=== PATIENT | male | born 1955 | race Caucasian/White ===

== ENCOUNTER → 2017-02-18 | Outpatient (CLI) | payer BC ==
[2017-02-18 07:22] LABS: Blood Urea Nitrogen 20 mg/dL (9-20); Non-African American GFR(MDRD) >60 (>60 ml/min/1.73 sqM)
--- NOTE | 2017-02-18 08:46 | CT ---
EXAMINATION TYPE: CT chest w con DATE OF EXAM: 02/18/2017 COMPARISON: Previous CT scan dated 06/14/2016 and a previous PET/CT dated 08/10/2016. HISTORY: SPN CT DLP: 745.70 mGycm Automated exposure control for dose reduction was used. CONTRAST: CT scan of the chest is performed with IV Contrast, patient injected with 100 ml mL of Omnipaque 300. FINDINGS: Solid lesion with central lucency in the right lower lobe remains in unchanged in size chel uring 1.7 cm. No additional parenchymal nodules are seen. There is no significant axillary or hilar adenopathy. There are some shotty mediastinal and aortopulm onary window lymphadenopathy. There is no pleural or pericardial fluid. The heart is not enlarged. There is a small hiatal hernia. Visualized portions of the upper abdomen are otherwise normal. There is a small splenule adjacent to the anterior tip of the spleen. There is mild hypertrophic spondylosis throughout the dorsal spine. No bony destructive lesion is see n. IMPRESSION: 1. SMALL HIATAL HERNIA. 2. SMALL HIATAL HERNIA. STABLE, SOLITARY PULMONARY NODULE. FOLLOW-UP EXAMINATION IN 6 MONTHS TIME WOU LD BE SUGGESTED. 3. MILD DEGENERATIVE CHANGE WITHIN THE SPINE.
== END | disposition home or self-care (01) ==
LOC: RADCTMAIN 06:47
PROVIDERS: ATTEND Internal Medicine
DX: R91.1 Solitary pulmonary nodule (principal)
CPT/HCPCS: 82565; 84520; 71260; 36415; Q9967

== ENCOUNTER → 2022-02-11 | Outpatient (CLI) | payer BC ==
[2022-02-11 14:32] LABS: ALT 12 U/L (10-49); AST 16 U/L (14-35); Chol/HDL Ratio 3.19 Ratio; LDL Cholesterol,Calculated 61.3 mg/dL (0.0-131.0)
== END | disposition home or self-care (01) ==
LOC: LABWHC1 09:54
PROVIDERS: ATTEND Internal Medicine
DX: E78.2 Mixed hyperlipidemia (principal)
CPT/HCPCS: 36415; 80061; 84450; 84460

== ENCOUNTER → 2022-03-22 | Outpatient (CLI) | payer MEDICARE ==
[2022-03-22 07:44] LABS: African American GFR (CKD) >90 (>60 ml/min/1.73 sqM); Blood Urea Nitrogen 21 mg/dL (9-20); Non-African American GFR(CKD) 88 (>60 ml/min/1.73 sqM)
--- NOTE | 2022-03-22 08:58 | XR ---
EXAMINATION TYPE: XR humerus RT DATE OF EXAM: 03/22/2022 COMPARISON: NONE HISTORY: 67-year-old male assess for contrast extravasation after CT injection. TECHNIQUE: 2 views FINDINGS: Only a small amount of extravasated contrast is present along the antecubital fossa region. There is degenerative change at the glenohumeral joint characterized by inferior humeral head spurring. There is a 1.9 x 0.6 cm calcific focus projecting just above the greater tuberosity. Mild to moderate degen erative change AC joint. No acute fracture. IMPRESSION: 1. Only a small amount of extravasated contrast along the antecubital fossa. The remaining contrast i s not within the [id number]. Further clinical correlation will be needed. 2. Correlate for any potential symptoms of calcific tendinitis of the rotator cuff. 3. Underlying at least mild OA at the glenohumeral joint.
--- NOTE | 2022-03-22 10:34 | CT ---
EXAMINATION TYPE: CT chest w con DATE OF EXAM: 03/22/2022 COMPARISON: 02/18/2017 HISTORY: 67-year-old male R91.8, Lung nodule right lung TECHNIQUE: Contiguous axial scanning of the chest after the administration of 140 mL of Isovue 300. Coronal/sagittal reconstructions performed. Patient received 2 separate injections of 70 mL IV contrast. This seems to be some delayed intravascu lar contrast. Both scans may have become delayed inadvertently. We see some opacification of the kidn eys. X-ray of the right arm shows no large area of extravasation. CT DLP: 1678mGycm. Automatic exposure control utilized for a dose reduction. FINDINGS: Mild pectus excavatum deformity. Heart upper limits of normal in size without pericardial effusion. LAD and circumflex coronary artery calcifications are present. Ectatic aortic root at 3.6 cm. Ectatic ascending aorta 3.7 cm. Minimal atherosclerotic arch calcifica tions. Convex-right vessel branching anatomy. 1.9 cm nodule posterior left thyroid lobe. Possible additional 2.0 cm nodule of the thyroid isthmus. Mildly enlarged caliber to the main right and left pulmonary arteries measuring up to 2.9 cm suggesti ng underlying pulmonary hypertension. A 1.7 cm right hilar lymph node seems to have measured up to 2.0 cm, previously. Otherwise, no thorac ic lymphadenopathy by CT size criteria. There is some asymmetric narrowing of the right mainstem bronchus and tachycardia and interstitial ch anges at the right base. Lesser degree of interstitial changes and strandy scarring or atelectasis at the left base. Mild emphysematous change. No consolidation or pleural effusion. A 1.5 cm nodule posterior right lower lobe is unchanged. Centrally located 1.4 cm right lower lobe nodule is also unchanged, axial image 39. 6 mm subpleural pulmonary nodule overlying the right hemidiaphragm, axial image 39, not clearly seen previously. Six-month follow-up recommended to reassess this. 4 mm lingular pulmonary nodule, axial image 31 is unchanged. Tiny hiatal hernia. Multiple junctional folds within the gallbladder. Anterior splenule. Mild bilater al perinephric edema could reflect chronic kidney disease or senescent change. Bones: Spondylotic change visualized lower cervical spine. IMPRESSION: 1. COPD with minimal emphysema. Asymmetric narrowing right main stem bronchus. Correlate with patient 's symptoms for potential bronchomalacia. Chronic appearing pleural parenchymal scarring and some int erstitial fibrosis at the lower lungs. 2. A couple of dominant right lower lobe pulmonary nodules measuring up to 1.5 cm appear unchanged. A 6 mm subpleural pulmonary nodule at the right base is not clearly seen previously. Six-month follow- up CT to reassess. 3. Mildly enlarged 1.7 cm right hilar lymph node appears smaller compared to 2.0 cm, previously. 4. Tiny hiatal hernia. Suggestion of underlying thyroid nodules. Nonemergent thyroid ultrasound evalu ation to further assess.
== END | disposition home or self-care (01) ==
LOC: RADCTMAIN 06:13
PROVIDERS: ATTEND Family Medicine
DX: R91.8 Other nonspecific abnormal finding of lung field (principal); J43.9 Emphysema, unspecified; K44.9 Diaphragmatic hernia without obstruction or gangrene; M19.041 Primary osteoarthritis, right hand
CPT/HCPCS: 82565; 84520; 73060; 71260; Q9967

== ENCOUNTER 2022-09-13 09:25 | Day surgery (SDC) | payer BC, MEDICARE ==
[2022-09-11 16:19] VITALS: BMI 35.6
[~2022-09-13 09:25] MED LIST: LACTATED RINGERS 1,000 ML IV SCH; LIDOCAINE 1% (10MG/ML) FOR IV START INTRADERMA PRN
[2022-09-13 10:20] LABS: Glucose,Whole Blood 102 mg/dL (70-110)
[2022-09-13 10:21] VITALS: TEMP 97.7
[2022-09-13] MEDS ORDERED: PROPOFOL 10 MG/ML 20 ML VIAL IV ONE (11:02)
[2022-09-13] MEDS ORDERED: LIDOCAINE 2% INJ 20 MG/ML (2 ML VIAL) ONE (11:02)
--- NOTE | 2022-09-13 11:24 | P.PCN ---
Date of Procedure: 09/13/22 Procedure(s) Performed: BRIEF HISTORY: Patient is a 67-year-old pleasant white male scheduled for an elective colonoscopy as a part of screening for colon cancer. He does does have family history of colon cancer diagnosed in his brother at age 70. PROCEDURE PERFORMED: Colonoscopy with snare polypectomy. PREOPERATIVE DIAGNOSIS: Screening for colon cancer/family history of colon cancer. IV sedation per Anesthesia. PROCEDURE: After informed consent was obtained, the patient, was brought into the endoscopy unit. IV sedation was administered by Anesthesia under continuous monitoring. Digital rectal examination was normal. Initially the Olympus CF-160 flexible video colonoscope was then inserted in the rectum, gradually advanced into the cecum without any difficulty. Careful examination was performed as the scope was gradually being withdrawn. Ileocecal valve and the appendiceal orifice were visualized and appeared normal. Prep was fair Mucosa of the cecum appeared normal. In the ascending colon there was a 1 cm polyp removed by snare polypectomy. Rest of the, ascending colon, transverse colon, descending colon, sigmoid colon, and rectum appeared normal. The rectum there was a polyp removed by snare polypectomy. Retroflexion was performed in the rectum and no lesions were seen. The patient tolerated the procedure well. IMPRESSION: 5 mm and 1 cm ascending colon polyp status post polypectomy 5 mm rectal polyp status post snare polypectomy RECOMMENDATIONS: Findings of this examination were discussed with the patient as well as his family..He was advised to follow with the biopsies as. If the biopsy reveals adenoma he can have a repeat colonoscopy in 3 years.
[2022-09-13 12:01] VITALS: BP 118/73; PULSE 67; RESP 20
== END 2022-09-13 12:08 | disposition home or self-care (01) ==
LOC: ORWHC2ENDO 09:25
PROVIDERS: ATTEND Internal Medicine Gastroenterology
DX: Z12.11 Encounter for screening for malignant neoplasm of colon (principal); D12.2 Benign neoplasm of ascending colon; K62.1 Rectal polyp; Z80.0 Family history of malignant neoplasm of digestive organs; I10 Essential (primary) hypertension; E78.5 Hyperlipidemia, unspecified; I48.91 Unspecified atrial fibrillation; G47.33 Obstructive sleep apnea (adult) (pediatric); Z99.89 Dependence on other enabling machines and devices; M19.90 Unspecified osteoarthritis, unspecified site; K21.9 Gastro-esophageal reflux disease without esophagitis; J44.9 Chronic obstructive pulmonary disease, unspecified; F17.200 Nicotine dependence, unspecified, uncomplicated; Z79.4 Long term (current) use of insulin; Z79.02 Long term (current) use of antithrombotics/antiplatelets; Z79.51 Long term (current) use of inhaled steroids; Z79.899 Other long term (current) drug therapy; Z90.49 Acquired absence of other specified parts of digestive tract; Z98.890 Other specified postprocedural states; Z79.811 Long term (current) use of aromatase inhibitors
CPT/HCPCS: 88305; 45385; J2704; J2001

== ENCOUNTER 2024-03-02 17:31 | Inpatient (IN) | payer MEDICARE ==
--- NOTE | 2024-03-02 18:13 | ED ---
General Adult HPI - General Source: patient, RN notes reviewed Mode of arrival: ambulatory Limitations: no limitations <Shelly Parker - Last Filed: 03/02/24 18:11> <Chava Russo - Last Filed: 03/02/24 21:57> - General Chief complaint: Shortness of Breath Stated complaint: SOB Time Seen by Provider: 03/02/24 18:11 - History of Present Illness Initial comments: Quick note: 68-year-old male presents to the emergency department for evaluation of shortness of breath. Patient states that this been going on for around a week. He does note that he was recently on steroids and completed the course today. He states that he thought he was getting better at that time but seems to be worsening again. He does have a history of COPD. (Shelly Parker) Dictation was produced using [employer] dictation software. please excuse any grammatical, word or spelling errors. Chief Complaint: 68-year-old male sent in by primary care doctor for concerns of CHF History of Present Illness: Patient 68-year-old male presents to the emergency department by primary care doctor for concerns of CHF. Patient has been short of breath. Has been dealing with respiratory infection completed course of antibiotics. He is also had swelling in his legs. He saw his primary care doctor today was sent to the ER for concerns of CHF. Patient has no chest pain. He wears oxygen at night as needed. Patient denies any fever, chills or night sweats. The ROS documented in this emergency department record has been reviewed and confirmed by me. Those systems with pertinent positive or negative responses have been documented in the HPI. All other systems are other negative and/or noncontributory. (Chava Russo) - Related Data Home Medications Medication Instructions Recorded Confirmed Cholecalciferol [Vitamin D3] 2,000 unit PO DAILY 10/19/15 09/13/22 Enalapril Maleate [Vasotec] 10 mg PO DAILY 10/19/15 09/13/22 Canagliflozin [Invokana] 300 mg PO DAILY 06/12/17 09/13/22 Cyanocobalamin (Vitamin B-12) 5,000 mg PO DAILY 06/12/17 09/13/22 [Vitamin B12] Potassium Chloride [K-Tab ER] 10 meq PO DAILY 06/12/17 09/13/22 metFORMIN HCL [Glucophage] 1,000 mg PO DAILY 06/12/17 09/13/22 Atorvastatin [Lipitor] 40 mg PO DAILY 09/11/22 09/13/22 Bisoprolol-Hctz 10-6.25 mg [Ziac 1 tab PO DAILY 09/11/22 09/13/22 10-6.25 MG] INSULIN LISPRO (For Pump) [humaLOG 0.01 units SQ-PUMP CONTINUOUS 09/11/22 09/13/22 (For Pump)] Rivaroxaban [Xarelto] 2.5 mg PO BID 09/11/22 09/13/22 Tiotropium 18 Mcg/Puff [Spiriva] 2 puff INHALATION DAILY 09/11/22 09/13/22 Allergies Allergy/AdvReac Type Severity Reaction Status Date / Time No Known Allergies Allergy Verified 03/02/24 17:47 Review of Systems ROS Other: All systems not noted in ROS Statement are negative. <Shelly Parker - Last Filed: 03/02/24 18:11> ROS Other: All systems not noted in ROS Statement are negative. <Chava Russo - Last Filed: 03/02/24 21:57> ROS Statement: Those systems with pertinent positive or pertinent negative responses have been documented in the HPI. Past Medical History Past Medical History: Atrial Fibrillation, COPD, Diabetes Mellitus, GERD/Reflux, Hyperlipidemia, Hypertension, Osteoarthritis (OA), Respiratory Disorder, Sleep Apnea/CPAP/BIPAP Additional Past Medical History / Comment(s): doesn't use cpap machine, thinks A fib History of Any Multi-Drug Resistant Organisms: None Reported Past Surgical History: Appendectomy, Heart Catheterization Additional Past Surgical History / Comment(s): 316 TOTAL LEFT HIP REPLACEMENT, l cataract Past Anesthesia/Blood Transfusion Reactions: No Reported Reaction Past Psychological History: No Psychological Hx Reported Smoking Status: Current every day smoker Past Alcohol Use History: None Reported Past Drug Use History: None Reported - Past Family History Brother(s) Family Medical History: Cancer Additional Family Medical History / Comment(s): lung, skin, and colon Mother Family Medical History: CVA/TIA Father Family Medical History: Congestive Heart Failure (CHF) <Shelly Parker - Last Filed: 03/02/24 18:11> General Exam Limitations: no limitations <Shelly Parker - Last Filed: 03/02/24 18:11> <Chava Russo - Last Filed: 03/02/24 21:57> - General Exam Comments Initial Comments: Visual Physical Exam Vital signs reviewed General: Well-appearing, nontoxic, no acute distress. Head: Normocephalic, atraumatic Eyes: PERRLA, EOMI ENT: Airway patent Chest: Nonlabored breathing Skin: No visual rash, normal skin tone Neuro: Alert and oriented 3 Musculoskeletal: No gross abnormalities (Shelly Parker) PHYSICAL EXAM: General Impression: Alert and oriented x3, not in acute distress HEENT: Normocephalic atraumatic, extra-ocular movements intact, pupils equal and reactive to light bilaterally, mucous membranes moist. Cardiovascular: Heart regular rate and rhythm Chest: Able to complete full sentences, no retractions, no tachypnea, lungs clear to auscultation bilaterally Abdomen: abdomen soft, non-tender, non-distended, no organomegaly Musculoskeletal: Pulses present and equal in all extremities, 2+ pitting edema to the lower extremities Motor: no focal deficits noted Neurological: CN II-XII grossly intact, no focal motor or sensory deficits noted Skin: Intact with no visualized rashes Psych: Normal affect and mood (Chava Russo) Course Vital Signs 03/02/24 03/02/24 03/02/24 17:44 21:27 21:32 Temperature 97.9 F Pulse Rate 91 90 Respiratory 18 18 Rate Blood Pressure 117/67 114/70 O2 Sat by Pulse 90 L 88 L 91 L Oximetry EKG Findings - EKG Comments: EKG Findings:: My EKG interpretation: Ventricular rate 87, sinus rhythm,. 184, QRS 83, QTc 382. No MT prolongation, no QTC prolongation, no ST or T-wave changes noted. . Overall, this EKG is unremarkable <Chava Russo - Last Filed: 03/02/24 21:57> Medical Decision Making <Shelly Parker - Last Filed: 03/02/24 18:11> - Lab Data Result diagrams: 03/02/24 17:48 03/02/24 17:48 <Bayudan,Chava D - Last Filed: 03/02/24 21:57> - Medical Decision Making Quick note preformed and electronically signed by REECE Jenkins-C (Shelly Parker) Was pt. sent in by a medical professional or institution ([facility], [facility], urgent care, hospital, or [facility]...) When possible be specific @ -No Did you speak to anyone other than the patient for history (EMS, parent, family, police, friend...)? What history was obtained from this source @ -No Did you review nursing and triage notes (agree or disagree)? Why? @ -I reviewed and agree with nursing and triage notes Were old charts reviewed (outside hosp., previous admission, EMS record, old EKG, old radiological studies, urgent care reports/EKG's, [facility] records)? Report findings @ -No old charts were reviewed Differential Diagnosis (chest pain, altered mental status, abdominal pain women, abdominal pain men, vaginal bleeding, musculoskeletal, weakness, fever, dyspnea, syncope, headache, dizziness, GI bleed, back pain, seizure, CVA, palpatations, mental health)? @ -Differential Dyspnea: Coronary syndrome, arrhythmia, tamponade, asthma, COPD, pulmonary embolism, pneumonia, pneumothorax, pulmonary effusion, anaphylaxis, diabetic ketoacidosis, flailed chest, pulmonary contusion, diaphragmatic rupture, anemia, neuromuscular, this is not meant to be an all-inclusive list. EKG interpreted by me (3pts min.). @ -See above X-rays interpreted by me (1pt min.). @ -Chest x-ray is nonacute CT interpreted by me (1pt min.). @ -None done U/S interpreted by me (1pt. min.). @ -None done What testing was considered but not performed or refused? (CT, X-rays, U/S, labs)? Why? @ -None What meds were considered but not given or refused? Why? @ -None Was smoking cessation discussed for >3mins.? @ -No Were there social determinants of health that impacted care today? How? (Homel essness, low income, unemployed, alcoholism, drug addiction, transportation, low edu. Level, literacy, decrease access to med. care, [facility], rehab)? @ -No Was there de-escalation of care discussed even if they declined (Discuss DNR or withdrawal of care, Hospice)? DNR status @ -No What co-morbidities impacted this encounter? (DM, HTN, Smoking, COPD, CAD, Cancer, CVA, ARF, Chemo, Hep., AIDS, mental health diagnosis, sleep apnea, morbid obesity)? @ -None Was patient admitted / discharged? Hospital course, mention meds given and route, prescriptions, significant lab abnormalities, going to OR and other pertinent info. @ -68-year-old male presents with dyspnea. V vital signs upon arrival shows pulse ox of 90. Rest of vital signs within acceptable limits.. Laboratory evaluation is unremarkable. BNP is normal. Chest x-ray is nonacute. Patient underwent ambulatory pulse ox and his oxygen dropped to 88%. Patient will be admitted consultation to pulmonology. Did you discuss the management of the patient with other professionals (professionals i.e. , PA, [facility], lab, RT, psych nurse, clinical social worker, behavior support specialist, teacher, building drafting officer, heel caser)? Give summary @ -No Was critical care preformed (if so, how long)? @ -Yes, 33 minutes Undiagnosed new problem with uncertain prognosis? @ -No Drug Therapy requiring intensive monitoring for toxicity (Heparin, Nitro, Insulin, Cardizem)? @ -No Were any procedures done? @ -No Diagnosis/symptom? Acute, or Chronic, or Acute on Chronic? Uncomplicated (without systemic symptoms) or Complicated (systemic symptoms)? @ -Hypoxia Side effects of treatment? @ -No Exacerbation, Progression, or Severe Exacerbation? @ -No Poses a threat to life or bodily function? How? (Chest pain, USA, SC, pneumonia, PE, COPD, DKA, ARF, appy, cholecystitis, CVA, Diverticulitis, Homicidal, Suicidal, threat to staff... and all critical care pts) @ -yes (Chava Russo) - Lab Data Lab Results 03/02/24 03/02/24 03/02/24 Range/Units 17:48 17:48 17:48 WBC 11.1 H (3.8-10.6) k/uL RBC 5.50 (4.30-5.90) m/uL Hgb 16.4 (13.0-17.5) gm/dL Hct 52.4 (39.0-53.0) % MCV 95.3 (80.0-100.0) fL MCH 29.8 (25.0-35.0) pg MCHC 31.2 (31.0-37.0) g/dL RDW 14.1 (11.5-15.5) % Plt Count 314 (150-450) k/uL MPV 7.0 Neutrophils % 81 % Lymphocytes % 12 % Monocytes % 5 % Eosinophils % 1 % Basophils % 1 % Neutrophils # 9.0 H (1.3-7.7) k/uL Lymphocytes # 1.3 (1.0-4.8) k/uL Monocytes # 0.5 (0-1.0) k/uL Eosinophils # 0.1 (0-0.7) k/uL Basophils # 0.1 (0-0.2) k/uL Manual Slide Review Performed PT 10.8 (10.0-12.5) sec INR 1.0 (<1.2) APTT 23.4 (22.0-30.0) sec Sodium 132 L (137-145) mmol/L Potassium 4.7 (3.5-5.1) mmol/L Chloride 101 (98-107) mmol/L Carbon Dioxide 24 (22-30) mmol/L Anion Gap 7 mmol/L BUN 26 H (9-20) mg/dL Creatinine 0.60 L (0.66-1.25) mg/dL Est GFR (CKD-EPI)AfAm >90 (>60 ml/min/1.73 sqM) Est GFR (CKD-EPI)NonAf >90 (>60 ml/min/1.73 sqM) Glucose 297 H (74-99) mg/dL Calcium 9.3 (8.4-10.2) mg/dL Total Bilirubin 0.4 (0.2-1.3) mg/dL AST 21 (17-59) U/L ALT 25 (4-49) U/L Alkaline Phosphatase 110 (38-126) U/L Troponin I (0.000-0.034) ng/mL NT-Pro-B Natriuret Pep 114 pg/mL Total Protein 6.1 L (6.3-8.2) g/dL Albumin 3.6 (3.5-5.0) g/dL 03/02/24 Range/Units 17:48 WBC (3.8-10.6) k/uL RBC (4.30-5.90) m/uL Hgb (13.0-17.5) gm/dL Hct (39.0-53.0) % MCV (80.0-100.0) fL MCH (25.0-35.0) pg MCHC (31.0-37.0) g/dL RDW (11.5-15.5) % Plt Count (150-450) k/uL MPV Neutrophils % % Lymphocytes % % Monocytes % % Eosinophils % % Basophils % % Neutrophils # (1.3-7.7) k/uL Lymphocytes # (1.0-4.8) k/uL Monocytes # (0-1.0) k/uL Eosinophils # (0-0.7) k/uL Basophils # (0-0.2) k/uL Manual Slide Review PT (10.0-12.5) sec INR (<1.2) APTT (22.0-30.0) sec Sodium (137-145) mmol/L Potassium (3.5-5.1) mmol/L Chloride (98-107) mmol/L Carbon Dioxide (22-30) mmol/L Anion Gap mmol/L BUN (9-20) mg/dL Creatinine (0.66-1.25) mg/dL Est GFR (CKD-EPI)AfAm (>60 ml/min/1.73 sqM) Est GFR (CKD-EPI)NonAf (>60 ml/min/1.73 sqM) Glucose (74-99) mg/dL Calcium (8.4-10.2) mg/dL Total Bilirubin (0.2-1.3) mg/dL AST (17-59) U/L ALT (4-49) U/L Alkaline Phosphatase (38-126) U/L Troponin I <0.012 (0.000-0.034) ng/mL NT-Pro-B Natriuret Pep pg/mL Total Protein (6.3-8.2) g/dL Albumin (3.5-5.0) g/dL Disposition <Shelly Parker - Last Filed: 03/02/24 18:11> Decision Time: 21:57 <Chava Russo - Last Filed: 03/02/24 21:57> Clinical Impression: Hypoxia Disposition: ADMITTED IP TO THIS HOSP Condition: Fair Referrals: Yoni Hahn DO [Primary Care Provider] - 1-2 days
[2024-03-02 18:29] LABS: Basophils # (A) 0.1 k/uL (0-0.2); Basophils % (A) 1 %; Eosinophils # (A) 0.1 k/uL (0-0.7); Eosinophils % (A) 1 %; HCT 52.4 % (39.0-53.0); HGB 16.4 gm/dL (13.0-17.5); Lymphocytes # (A) 1.3 k/uL (1.0-4.8); Lymphocytes % (A) 12 %; MCH 29.8 pg (25.0-35.0); MCHC 31.2 g/dL (31.0-37.0); MCV 95.3 fL (80.0-100.0); Monocytes # (A) 0.5 k/uL (0-1.0); Monocytes % (A) 5 %; Neutrophils % (A) 81 %; Platelet Count 314 k/uL (150-450); RDW 14.1 % (11.5-15.5); WBC 11.1 k/uL (3.8-10.6)
[2024-03-02 18:37] LABS: ALT 25 U/L (4-49); AST 21 U/L (17-59); African American GFR (CKD) >90 (>60 ml/min/1.73 sqM); Albumin 3.6 g/dL (3.5-5.0); Alkaline Phosphatase 110 U/L (38-126); Anion Gap 7 mmol/L; Blood Urea Nitrogen 26 mg/dL (9-20); Calcium 9.3 mg/dL (8.4-10.2); Carbon Dioxide 24 mmol/L (22-30); Chloride 101 mmol/L (98-107); Glucose 297 mg/dL (74-99); Non-African American GFR(CKD) >90 (>60 ml/min/1.73 sqM); Potassium 4.7 mmol/L (3.5-5.1); Sodium 132 mmol/L (137-145); Total Bilirubin 0.4 mg/dL (0.2-1.3); Total Protein 6.1 g/dL (6.3-8.2)
[2024-03-02 18:43] LABS: NT-Pro-B-Type Natriuretic Pept 114 pg/mL
--- NOTE | 2024-03-02 18:44 | XR ---
EXAMINATION TYPE: XR chest 2V DATE OF EXAM: 03/02/2024 6:38 PM CLINICAL INDICATION:Male, 68 years old with history of difficulty breathing; [facility] COMPARISON: None TECHNIQUE: XR chest 2V Frontal view of the chest. FINDINGS: Lungs/Pleura: There is no evidence of pleural effusion, focal consolidation, or pneumothorax. Pulmonary vascularity: Unremarkable. Heart/mediastinum: Cardiomediastinal silhouette is enlarged and stable. Musculoskeletal: No acute osseous pathology. IMPRESSION: No acute cardiopulmonary disease/process.
[2024-03-02 18:47] LABS: Partial Thromboplastin Time 23.4 sec (22.0-30.0); Prothrombin Time 10.8 sec (10.0-12.5)
[2024-03-02] MEDS ORDERED: NALOXONE 0.4 MG/ML 1 ML VIAL IV PRN (21:54)
[2024-03-02] MEDS: SODIUM CHLORIDE 0.9% 1,000 ML IV SCH (22:02)
[2024-03-03] MEDS ORDERED: IPRATROPIUM-ALBUTEROL 3 ML NEB INHALATION PRN (01:28)
[2024-03-03] MEDS: RIVAROXABAN 2.5 MG TABLET PO SCH (01:51)
--- NOTE | 2024-03-03 02:32 | P.CNPUL ---
History of Present Illness Consult date: 03/03/24 Requesting physician: Chava Russo Reason for consult: dyspnea Chief complaint: sent in from his PCP for increased lower extremity swelling and SOB History of present illness: Patient is a 68-year-old white male with past medical history significant for chronic tobacco dependence, pulmonary nodule, COPD, chronic hypoxemic respiratory failure normally maintained on 4 L of home O2, obstructive sleep apnea without home CPAP, obesity, atrial fibrillation anticoagulated on Xarelto, diabetes mellitus, hypertension, hyperlipidemia ,among other things. His primary care provider is a Dr. Hahn. Developed increased shortness of breath and URI like symptoms earlier in the week. Mostly, reporting a runny nose, sore throat, sinus congestion, and a minimally productive cough with occasional green sputum. No fevers, chest pain, or hemoptysis. He was treated with course of steroids and antibiotics on an outpatient basis. States his was sick with similar symptoms a couple weeks ago. He is also reports increased lower extremity swelling. He does take Lasix on outpatient basis, reportedly missed some doses earlier in the week. Patient states that he is scheduled for a outpatient stress test later this month. He has paroxysmal atrial fibrillation, and is chronically anticoagulated on Xarelto. Denies missing any doses of his anticoagulation. Patient was sent in by his PCP for evaluation yesterday evening. He has bilateral lower extremity pitting edema. Denies any chest pain, heart palpitations, lightheadedness, or syncopal events. Chest x-ray did not show any acute cardiopulmonary process. Cardiac silhouette appears stable. No significant vascular congestion or pulmonary edema. No pleural effusions or pneumothoraces. No focal consolidations or evidence of pneumonia. CBC: WBC count 11.1, hemoglobin 16.4, hematocrit 52.4, platelets 314. BMP: Sodium 132, potassium 4.7, chloride 101, serum bicarb 24, BUN 26, creatinine 0.6, glucose 297. LFTs not elevated. Troponin less than 0.012. NT proBNP 114. EKG showing normal sinus rhythm without any obvious acute ischemic changes. Left axis deviation. afebrile. Vital signs stable. Review of Systems REVIEW OF SYSTEMS: CONSTITUTIONAL: Denies any recent significant weight loss or weight gain. EYES: Denies change in vision. EARS, NOSE, MOUTH, THROAT: Denies headaches, denies sore throat. CARDIOVASCULAR: Denies chest pain, palpitations or syncopal episodes. Does report increased lower extremity swelling and noncompliance with Lasix. RESPIRATORY: see HPI GASTROINTESTINAL: Denies change in appetite, abdominal pain, nausea and vomiting, or diarrhea GENITOURINARY: Denies hematuria, denies infections. MUSKULOSKELETAL: Denies pain, denies swelling. INTEGUMENTARY: Denies rash, denies eczema. NEUROLOGICAL: Denies recent memory loss, no recent seizure activity. PSYCHIATRIC: Denies anxiety, denies depression. HEMATOLOGIC/LYMPHATIC: Denies anemia, denies enlarged lymph node Past Medical History Past Medical History: Atrial Fibrillation, COPD, Diabetes Mellitus, GERD/Reflux, Hyperlipidemia, Hypertension, Osteoarthritis (OA), Respiratory Disorder, Sleep Apnea/CPAP/BIPAP Additional Past Medical History / Comment(s): doesn't use cpap machine, thinks A fib History of Any Multi-Drug Resistant Organisms: None Reported Past Surgical History: Appendectomy, Heart Catheterization Additional Past Surgical History / Comment(s): 10-30-15 TOTAL LEFT HIP REPLACEMENT, l cataract Past Anesthesia/Blood Transfusion Reactions: No Reported Reaction Past Psychological History: No Psychological Hx Reported Smoking Status: Current every day smoker Past Alcohol Use History: None Reported Past Drug Use History: None Reported - Past Family History Brother(s) Family Medical History: Cancer Additional Family Medical History / Comment(s): lung, skin, and colon Mother Family Medical History: CVA/TIA Father Family Medical History: Congestive Heart Failure (CHF) Medications and Allergies Home Medications Medication Instructions Recorded Confirmed Type Cholecalciferol [Vitamin D3] 2,000 unit PO DAILY 10/19/15 09/13/22 History Enalapril Maleate [Vasotec] 10 mg PO DAILY 10/19/15 09/13/22 History Canagliflozin [Invokana] 300 mg PO DAILY 06/12/17 09/13/22 History Cyanocobalamin (Vitamin B-12) 5,000 mg PO DAILY 06/12/17 09/13/22 History [Vitamin B12] Potassium Chloride [K-Tab ER] 10 meq PO DAILY 06/12/17 09/13/22 History metFORMIN HCL [Glucophage] 1,000 mg PO DAILY 06/12/17 09/13/22 History Atorvastatin [Lipitor] 40 mg PO DAILY 09/11/22 09/13/22 History Bisoprolol-Hctz 10-6.25 mg [Ziac 1 tab PO DAILY 09/11/22 09/13/22 History 10-6.25 MG] INSULIN LISPRO (For Pump) [humaLOG 0.01 units SQ-PUMP CONTINUOUS 09/11/22 09/13/22 History (For Pump)] Rivaroxaban [Xarelto] 2.5 mg PO BID 09/11/22 09/13/22 History Tiotropium 18 Mcg/Puff [Spiriva] 2 puff INHALATION DAILY 09/11/22 09/13/22 H istory Allergies Allergy/AdvReac Type Severity Reaction Status Date / Time No Known Allergies Allergy Verified 03/02/24 17:47 Physical Exam Vitals: Vital Signs Temp Pulse Resp BP Pulse Ox 03/03/24 00:58 74 16 114/66 96 03/02/24 21:32 90 18 114/70 91 L 03/02/24 21:27 88 L 03/02/24 17:44 97.9 F 91 18 117/67 90 L Intake and Output 03/02/24 03/02/24 03/03/24 14:59 22:59 06:59 Other: Weight 127.006 kg GENERAL EXAM: Alert, 68-year-old white male, sitting at the edge of the bed, comfortable in no apparent distress. HEAD: Normocephalic and atraumatic EYES: Normal reaction of pupils, equal size. NOSE: Clear with pink turbinates. THROAT: No erythema or exudates. NECK: No masses, no JVD. CHEST: No chest wall deformity. LUNGS: Equal air entry with very minimal end expiratory wheezing. No crackles, rhonchi, focal dullness. On 4 L/m nasal cannula. No conversational dyspnea or accessory muscle use.. CVS: S1 and S2 normal with no audible murmur, regular rhythm. No extra heart sounds ABDOMEN: No hepatosplenomegaly, active bowel sounds, no guarding or rigidity. SPINE: No scoliosis or deformity SKIN: No rashes CENTRAL NERVOUS SYSTEM: No focal deficits, tone is normal in all 4 extremities. EXTREMITIES: There is 3+ bilateral lower extremity pitting edema. No clubbing, or cyanosis. Peripheral pulses are intact. Results - Laboratory Findings CBC and BMP: 03/02/24 17:48 03/02/24 17:48 PT/INR, D-dimer PT 10.8 sec (10.0-12.5) 03/02/24 17:48 INR 1.0 (<1.2) 03/02/24 17:48 Abnormal lab findings: Abnormal Labs 03/02/24 03/02/24 17:48 17:48 WBC 11.1 H Neutrophils # 9.0 H Sodium 132 L BUN 26 H Creatinine 0.60 L Glucose 297 H Total Protein 6.1 L - Diagnostic Findings Chest x-ray: image reviewed Assessment and Plan Assessment: Suspect acute COPD exacerbation Bilateral lower extremity edema Acute on chronic dyspnea Chronic hypoxemic respiratory failure, normally maintained on 4 L/m nasal cannula 17/03 History of right lower lobe pulmonary nodule, reportedly follows up outpatient with the [facility] medical team. History of chronic tobacco dependence Obstructive sleep apnea, noncompliant with home CPAP History of paroxysmal atrial fibrillation, chronically anticoagulated on his Xarelto History of hyperlipidemia History of hypertension History of diabetes mellitus Obesity, with a BMI of 35 kg/m Plan: Patient's medications, labs, imaging reviewed Continue supplemental oxygen to maintain an oxygen saturation of 90% or greater Start patient on combination of DuoNeb's, Symbicort inhaler, and IV Solu-Medrol Check Cepheid 4-plex Patient has increased lower extremity swelling, and has reportedly been noncompliant with his Lasix on an outpatient basis Would start patient on Lasix 20 mg twice a day Check 2-D echocardiogram Reportedly has stress test scheduled for later this month with [facility] Consult cardiology We will also continue to follow I have personally seen and examined the patient, performed the documentation and the assessment and plan as written. Number of minutes spent on the visit:20 Time with Patient: Greater than 30
[2024-03-03] MEDS ORDERED: DEXTROSE 50% SYRINGE 50 ML IVP PRN ×2 (02:34)
[2024-03-03] MEDS: methylPREDNISolone SOD SUCCI 125 MG/2 ML VIAL IV SCH (05:03)
[2024-03-03 06:47] LABS: Glucose,Whole Blood 139 mg/dL (70-110)
[2024-03-03] MEDS: INSULIN ASPART (NovoLOG) 100 UNIT/ML VIAL SQ SCH (06:49)
[2024-03-03] MEDS: FAMOTIDINE 20 MG TAB PO SCH (08:31)
[2024-03-03] MEDS: FUROSEMIDE 10 MG/ML 2 ML VIAL IV SCH ×2 (08:32→21:39)
[2024-03-03] MEDS: IPRATROPIUM-ALBUTEROL 3 ML NEB INHALATION SCH (08:35)
[2024-03-03] MEDS: SYMBICORT 160-4.5 MCG INHALER INHALATION SCH (08:35)
--- NOTE | 2024-03-03 11:30 | P.CRDCN ---
History of Present Illness Consult date: 03/03/24 Consult reason: shortness of breath Chief complaint: sob History of present illness: History of present illness: Patient is a pleasant 68-year-old male with significant past medical history of COPD, tobacco abuse, lung nodule, atrial fibrillation, diabetes, hypertension, and hyperlipidemia who presented with worsening shortness of breath and edema. He does follow with Dr. Miranda in the office. He does have an outpatient stress test scheduled within the next 2 weeks. He reports that his shortness of breath and lower extremity edema has gotten worse over the past few days. He is confused on some of his medications and believes he is not taking any diuretics. Labs reviewed: WBC 11.1, hemoglobin 16.4, sodium 132, potassium 4.7, creatinine 0.6, troponin negative x 1, BNP 114. Chest x-ray with no acute findings. EKG shows sinus rhythm 87 bpm. He denies any chest pain or pressure. No dizziness or syncope. REVIEW OF SYSTEMS: No fever or chills. No cough or expectoration. No diaphoresis. Patient denies headache, dizziness, blurred vision, double vision. Patient denies any stomach discomfort. No nausea, vomiting. No hematochezia. No hematemesis. Denies any black stools or blood in his stools. Denies dysuria or hematuria. No muscle weakness or numbness. No chest pain or pressure. PHYSICAL EXAMINATION: This is a 68-year-old male in no apparent distress at the time of my examination. HEENT: Head is atraumatic, normocephalic. Pupils are equal, round. Sclerae anicteric. Conjunctivae are clear. Mucous membranes of the mouth are moist. Neck is supple. There is no jugular venous distention. No carotid bruit is heard. CHEST EXAMINATION: Lungs are clear to auscultation. No chest wall tenderness is noted on palpation or with deep breathing. HEART EXAMINATION: Heart regular rate and rhythm. S1, S2 heard. No murmurs, gallops or rub. ABDOMEN: Soft, nontender. Bowel sounds are heard. No organomegaly noted. EXTREMITIES: 2+ peripheral pulses with 1+ peripheral edema and no calf tenderness noted. NEUROLOGIC EXAMINATION: Patient is awake, alert and oriented x3. IMPRESSION AND PLAN: COPD Atrial fibrillation Diabetes Hypertension Hyperlipidemia Dyspnea Lower extremity edema PLAN: We will continue with current diuresis. Will check echo to evaluate heart function and structure. D-dimer pending. Will clarify his Xarelto dose. We will follow. I am dictating on behalf of Dr. Sage Miranda's history/physical and assessment/plan. Past Medical History Past Medical History: Atrial Fibrillation, COPD, Diabetes Mellitus, GERD/Reflux, Hyperlipidemia, Hypertension, Osteoarthritis (OA), Respiratory Disorder, Sleep Apnea/CPAP/BIPAP Additional Past Medical History / Comment(s): doesn't use cpap machine, thinks A fib History of Any Multi-Drug Resistant Organisms: None Reported Past Surgical History: Appendectomy, Heart Catheterization Additional Past Surgical History / Comment(s): 10-30-15 TOTAL LEFT HIP REPLACEMENT, l cataract Past Anesthesia/Blood Transfusion Reactions: No Reported Reaction Past Psychological History: No Psychological Hx Reported Smoking Status: Current every day smoker Past Alcohol Use History: None Reported Past Drug Use History: None Reported - Past Family History Brother(s) Family Medical History: Cancer Additional Family Medical History / Comment(s): lung, skin, and colon Mother Family Medical History: CVA/TIA Father Family Medical History: Congestive Heart Failure (CHF) Medications and Allergies Home Medications Medication Instructions Recorded Confirmed Type Canagliflozin [Invokana] 300 mg PO DAILY 06/12/17 03/03/24 History Potassium Chloride [K-Tab ER] 10 meq PO DAILY 06/12/17 03/03/24 History metFORMIN HCL [Glucophage] 1,000 mg PO BID 06/12/17 03/03/24 History Atorvastatin [Lipitor] 40 mg PO DAILY 09/11/22 03/03/24 History Rivaroxaban [Xarelto] 2.5 mg PO BID 09/11/22 03/03/24 History Tiotropium 18 Mcg/Puff [Spiriva] 1 puff INHALATION RT-DAILY 09/11/22 03/03/24 History Albuterol Sulfate [Albuterol 1 - 2 puff PO RT-Q4H PRN 03/03/24 03/03/24 History Sulfate Hfa] Bisoprolol Fumarate [Zebeta] 10 mg PO DAILY 03/03/24 03/03/24 History Doxycycline [Vibramycin] 100 mg PO BID 03/03/24 03/03/24 History Dulaglutide [Trulicity] 3 mg SQ WE 03/03/24 03/03/24 History Enalapril [Vasotec] 5 mg PO DAILY 03/03/24 03/03/24 History Pioglitazone [Actos] 30 mg PO DAILY 03/03/24 03/03/24 History Allergies Allergy/AdvReac Type Severity Reaction Status Date / Time No Known Allergies Allergy Verified 03/03/24 08:21 Physical Exam Vitals: Vital Signs Temp Pulse Resp BP Pulse Ox 03/03/24 08:53 84 03/03/24 08:41 93 L 03/03/24 08:36 80 03/03/24 08:28 75 20 131/77 90 L 03/03/24 04:57 98.2 F 68 18 127/72 95 03/03/24 00:58 74 16 114/66 96 03/02/24 21:32 90 18 114/70 91 L 03/02/24 21:27 88 L 03/02/24 17:44 97.9 F 91 18 117/67 90 L Intake and Output 03/02/24 03/03/24 03/03/24 22:59 06:59 14:59 Other: Weight 127.006 kg Results 03/02/24 17:48 03/02/24 17:48 Cardiac Enzymes 03/02/24 03/02/24 Range/Units 17:48 17:48 AST 21 (17-59) U/L Troponin I <0.012 (0.000-0.034) ng/mL Coagulation 03/02/24 Range/Units 17:48 PT 10.8 (10.0-12.5) sec APTT 23.4 (22.0-30.0) sec CBC 03/02/24 Range/Units 17:48 WBC 11.1 H (3.8-10.6) k/uL RBC 5.50 (4.30-5.90) m/uL Hgb 16.4 (13.0-17.5) gm/dL Hct 52.4 (39.0-53.0) % Plt Count 314 (150-450) k/uL Comprehensive Metabolic Panel 03/02/24 Range/Units 17:48 Sodium 132 L (137-145) mmol/L Potassium 4.7 (3.5-5.1) mmol/L Chloride 101 (98-107) mmol/L Carbon Dioxide 24 (22-30) mmol/L BUN 26 H (9-20) mg/dL Creatinine 0.60 L (0.66-1.25) mg/dL Glucose 297 H (74-99) mg/dL Calcium 9.3 (8.4-10.2) mg/dL AST 21 (17-59) U/L ALT 25 (4-49) U/L Alkaline Phosphatase 110 (38-126) U/L Total Protein 6.1 L (6.3-8.2) g/dL Albumin 3.6 (3.5-5.0) g/dL Current Medications Generic Name Dose Route Start Last Admin Trade Name Freq PRN Reason Stop Dose Admin Albuterol/Ipratropium 3 ml 03/03/24 08:00 03/03/24 08:35 Ipratropium-Albuterol 3 Ml Neb INHALATION 3 ml RT-QID JAQUELIN Administration Albuterol/Ipratropium 3 ml 03/03/24 01:28 Ipratropium-Albuterol 3 Ml Neb INHALATION RT-Q4H PRN Shortness Of Breath Or Wheezing Budesonide/Formoterol Fumarate 2 puff 03/03/24 08:00 03/03/24 08:35 Symbicort 160-4.5 Mcg Inhaler INHALATION 2 puff RT-BID JAQUELIN Administration Dextrose/Water 25 ml 03/03/24 02:34 Dextrose 50% Syringe 50 Ml IVP PER PROTOCOL PRN Hypoglycemia Protocol Dextrose/Water 50 ml 03/03/24 02:34 Dextrose 50% Syringe 50 Ml IVP PER PROTOCOL PRN Hypoglycemia Protocol Famotidine 20 mg 03/03/24 09:00 03/03/24 08:31 Famotidine 20 Mg Tab PO 20 mg DAILY JAQUELIN Administration Furosemide 20 mg 03/03/24 09:00 03/03/24 08:32 Furosemide 10 Mg/Ml 2 Ml Vial IV 20 mg Q12HR JAQUELIN Administration Sodium Chloride 1,000 mls @ 20 mls/hr 03/02/24 22:00 03/02/24 22:02 Saline 0.9% IV 20 mls/hr .Q24H JAQUELIN Administration Insulin Aspart 0 unit 03/03/24 07:30 03/03/24 06:49 Insulin Aspart (Novolog) 100 Unit/Ml Vial SQ Not Given ACHS JAQUELIN Protocol Methylprednisolone Sodium Succinate 60 mg 03/03/24 06:00 03/03/24 05:03 Methylprednisolone Sod Succi 125 Mg/2 Ml Vial IV 60 mg Q6HR JAQUELIN Administration Naloxone HCl 0.2 mg 03/02/24 21:54 Naloxone 0.4 Mg/Ml 1 Ml Vial IV Q2M PRN Opioid Reversal Rivaroxaban 2.5 mg 03/03/24 01:45 03/03/24 08:31 Rivaroxaban 2.5 Mg Tablet PO 2.5 mg BID JAQUELIN Administration Protocol Intake and Output 03/02/24 03/03/24 03/03/24 22:59 06:59 14:59 Other: Weight 127.006 kg 03/02/24 17:48 03/02/24 17:48
[2024-03-03 12:02] LABS: Glucose,Whole Blood 351 mg/dL (70-110)
--- NOTE | 2024-03-03 13:05 | P.HPIM ---
History of Present Illness 68-year-old pulmonary came with complaints of shortness of breath patient does have history of COPD quit smoking about a week and a half ago. Patient also complaining of occasional drainage from production. Patient usually uses 3 to 4 L of oxygen at home does have advanced COPD. Patient significantly improved after breathing treatments and systemic steroids. Patient is not wheezing at this time. Patient does have history of paroxysmal atrial fibrillation chronically anticoagulated patient is presently sinus rhythm. Patient also has significant lower extremity pedal edema does not have any history of congestive heart failure patient BNP and is 132. Troponins are negative. Patient denies any chest pain REVIEW OF SYSTEMS: CONSTITUTIONAL: No fever, no malaise, no fatigue. HEENT: No recent visual problems or hearing problems. Denied any sore throat. CARDIOVASCULAR: No chest pain, orthopnea, PND, no palpitations, no syncope. PULMONARY:-Acute on chronic hypercapnic and hypoxic respiratory failure secondary to COPD exacerbation patient has significant improvement no hemoptysis. GASTROINTESTINAL: No diarrhea, no nausea, no vomiting, no abdominal pain. NEUROLOGICAL: No headaches, no weakness, no numbness. HEMATOLOGICAL: Denies any bleeding or petechiae. GENITOURINARY: Denies any burning micturition, frequency, or urgency. MUSCULOSKELETAL/RHEUMATOLOGICAL: Denies any joint pain, swelling, or any muscle pain. ENDOCRINE: Denies any polyuria or polydipsia. The rest of the 14-point review of systems is negative. PHYSICAL EXAMINATION: GENERAL: The patient is alert and oriented x3, not in any acute distress. Well developed, well nourished. HEENT: Pupils are round and equally reacting to light. EOMI. No scleral icterus. No conjunctival pallor. Normocephalic, atraumatic. No pharyngeal erythema. No thyromegaly. CARDIOVASCULAR: S1 and S2 present. No murmurs, rubs, or gallops. PULMONARY: Chest is clear to auscultation, no wheezing or crackles. ABDOMEN: Soft, nontender, nondistended, normoactive bowel sounds. No palpable organomegaly. MUSCULOSKELETAL: No joint swelling or deformity. EXTREMITIES: No cyanosis, clubbing, or pedal edema. NEUROLOGICAL: Gross neurological examination did not reveal any focal deficits. SKIN: No rashes. Assessment and plan , Patient is significant improvement-acute on chronic hypoxic and hypercapnic respiratory failure systemic steroids and nasal treatments. Steroids will be transition to oral continue with breathing treatments. -bacterial bronchitis doxycycline -Peripheral edema: Patient will be started on IV Lasix increased to 40 mg with monitoring of kidney function electrolytes and input and output -Paroxysmal atrial fibrillation presently rate controlled continue with home medications -Type 2 diabetes mellitus uncontrolled elevated blood sugars blood sugars expected to get worse because of the systemic steroids patient will be on high- dose scale -Sleep apnea uses CPAP machine -Generalized deconditioning PT and OT evaluation -Gastroesophageal reflux disease DVT prophylaxis: Past Medical History Past Medical History: Atrial Fibrillation, COPD, Diabetes Mellitus, GERD/Reflux, Hyperlipidemia, Hypertension, Osteoarthritis (OA), Respiratory Disorder, Sleep Apnea/CPAP/BIPAP Additional Past Medical History / Comment(s): doesn't use cpap machine, thinks A fib History of Any Multi-Drug Resistant Organisms: None Reported Past Surgical History: Appendectomy, Heart Catheterization Additional Past Surgical History / Comment(s): 10-30-15 TOTAL LEFT HIP REPLACEMENT, l cataract Past Anesthesia/Blood Transfusion Reactions: No Reported Reaction Past Psychological History: No Psychological Hx Reported Smoking Status: Current every day smoker Past Alcohol Use History: None Reported Past Drug Use History: None Reported - Past Family History Brother(s) Family Medical History: Cancer Additional Family Medical History / Comment(s): lung, skin, and colon Mother Family Medical History: CVA/TIA Father Family Medical History: Congestive Heart Failure (CHF) Medications and Allergies Home Medications Medication Instructions Recorded Confirmed Type Canagliflozin [Invokana] 300 mg PO DAILY 06/12/17 03/03/24 History Potassium Chloride [K-Tab ER] 10 meq PO DAILY 06/12/17 03/03/24 History metFORMIN HCL [Glucophage] 1,000 mg PO BID 06/12/17 03/03/24 History Atorvastatin [Lipitor] 40 mg PO DAILY 09/11/22 03/03/24 History Rivaroxaban [Xarelto] 2.5 mg PO BID 09/11/22 03/03/24 History Tiotropium 18 Mcg/Puff [Spiriva] 1 puff INHALATION RT-DAILY 09/11/22 03/03/24 History Albuterol Sulfate [Albuterol 1 - 2 puff PO RT-Q4H PRN 03/03/24 03/03/24 History Sulfate Hfa] Bisoprolol Fumarate [Zebeta] 10 mg PO DAILY 03/03/24 03/03/24 History Doxycycline [Vibramycin] 100 mg PO BID 03/03/24 03/03/24 History Dulaglutide [Trulicity] 3 mg SQ WE 03/03/24 03/03/24 History Enalapril [Vasotec] 5 mg PO DAILY 03/03/24 03/03/24 History Pioglitazone [Actos] 30 mg PO DAILY 03/03/24 03/03/24 History Allergies Allergy/AdvReac Type Severity Reaction Status Date / Time No Known Allergies Allergy Verified 03/03/24 08:21 Physical Exam Vitals: Vital Signs Temp Pulse Resp BP Pulse Ox 03/03/24 11:58 92 03/03/24 11:44 93 03/03/24 08:53 84 03/03/24 08:41 93 L 03/03/24 08:36 80 03/03/24 08:28 75 20 131/77 90 L 03/03/24 04:57 98.2 F 68 18 127/72 95 03/03/24 00:58 74 16 114/66 96 03/02/24 21:32 90 18 114/70 91 L 03/02/24 21:27 88 L 03/02/24 17:44 97.9 F 91 18 117/67 90 L Intake and Output 03/02/24 03/03/24 03/03/24 22:59 06:59 14:59 Other: Weight 127.006 kg Results CBC & Chem 7: 03/02/24 17:48 03/02/24 17:48 Labs: Abnormal Lab Results - Last 24 Hours (Table) 03/02/24 03/02/24 03/03/24 Range/Units 17:48 17:48 06:45 WBC 11.1 H (3.8-10.6) k/uL Neutrophils # 9.0 H (1.3-7.7) k/uL Sodium 132 L (137-145) mmol/L BUN 26 H (9-20) mg/dL Creatinine 0.60 L (0.66-1.25) mg/dL Glucose 297 H (74-99) mg/dL POC Glucose (mg/dL) 139 H (70-110) mg/dL Total Protein 6.1 L (6.3-8.2) g/dL 03/03/24 Range/Units 12:01 WBC (3.8-10.6) k/uL Neutrophils # (1.3-7.7) k/uL Sodium (137-145) mmol/L BUN (9-20) mg/dL Creatinine (0.66-1.25) mg/dL Glucose (74-99) mg/dL POC Glucose (mg/dL) 351 H (70-110) mg/dL Total Protein (6.3-8.2) g/dL
[2024-03-03] MEDS: NON FORMULARY DRUG (Dulaglutide [Trulicity] 3 MG/0.5 ML Each) SQ SCH (13:20)
[2024-03-03 17:16] LABS: Glucose,Whole Blood 255 mg/dL (70-110)
[2024-03-03 20:54] LABS: Glucose,Whole Blood 292 mg/dL (70-110)
[2024-03-04 06:38] LABS: Glucose,Whole Blood 159 mg/dL (70-110)
[2024-03-04] MEDS: predniSONE 20 MG TAB PO SCH (08:50)
[2024-03-04] MEDS: PIOGLITAZONE 30 MG TAB PO SCH (08:50)
[2024-03-04] MEDS: lisinopriL 10 MG TAB PO SCH (08:50)
[2024-03-04] MEDS: ATORVASTATIN 40 MG TAB PO SCH (08:51)
[2024-03-04] MEDS: NON FORMULARY DRUG (Canagliflozin [Invokana] 300 MG Tablet) PO SCH (08:56)
--- NOTE | 2024-03-04 11:03 | P.PN ---
Subjective History of present illness: Patient is a pleasant 68-year-old male with significant past medical history of COPD, tobacco abuse, lung nodule, atrial fibrillation, diabetes, hypertension, and hyperlipidemia who presented with worsening shortness of breath and edema. He does follow with Dr. Miranda in the office. He does have an outpatient stress test scheduled within the next 2 weeks. He reports that his shortness of breath and lower extremity edema has gotten worse over the past few days. He is confused on some of his medications and believes he is not taking any diuretics. Labs reviewed: WBC 11.1, hemoglobin 16.4, sodium 132, potassium 4.7, creatinine 0.6, troponin negative x 1, BNP 114. Chest x-ray with no acute findings. EKG shows sinus rhythm 87 bpm. He denies any chest pain or pressure. No dizziness or syncope. 03/04 patient seen and examined. Patient states overall he feels somewhat better. He has been receiving IV Lasix with increased urine output. Denies any chest pain or pressure. D-dimer was normal. Echocardiogram pending. PHYSICAL EXAMINATION: This is a 68-year-old male in no apparent distress at the time of my examination. HEENT: Head is atraumatic, normocephalic. Pupils are equal, round. Sclerae anic teric. Conjunctivae are clear. Mucous membranes of the mouth are moist. Neck is supple. There is no jugular venous distention. No carotid bruit is heard. CHEST EXAMINATION: Lungs are clear to auscultation. No chest wall tenderness is noted on palpation or with deep breathing. HEART EXAMINATION: Heart regular rate and rhythm. S1, S2 heard. No murmurs, gallops or rub. ABDOMEN: Soft, nontender. Bowel sounds are heard. No organomegaly noted. EXTREMITIES: 2+ peripheral pulses with 1+ peripheral edema and no calf tenderness noted. NEUROLOGIC EXAMINATION: Patient is awake, alert and oriented x3. IMPRESSION AND PLAN: COPD Atrial fibrillation Diabetes Hypertension Hyperlipidemia Dyspnea Lower extremity edema PLAN: Continue current dose of diuretics. Signs and symptoms consistent with rosalio estive heart failure despite relatively normal BNP which can be falsely low in obese patients. Continue with IV diuretics. Await 2-D echo. At least one more day in the hospital and monitor response tomorrow. Objective - Vital Signs Vital signs: Vital Signs Temp 97.5 F L 03/04/24 07:00 Pulse 88 03/04/24 09:05 Resp 17 03/04/24 07:00 BP 150/75 03/04/24 07:00 Pulse Ox 94 L 03/04/24 08:56 FiO2 Intake & Output 03/03/24 03/04/24 03/04/24 18:59 06:59 18:59 Intake Total 118 118 Balance 118 118 Weight 127.006 kg Intake: Oral 118 118 Other: # Voids 3 - Labs CBC & Chem 7: 03/02/24 17:48 03/02/24 17:48 Labs: Abnormal Lab Results - Last 24 Hours (Table) 03/03/24 03/03/24 03/03/24 Range/Units 11:05 12:01 17:14 POC Glucose (mg/dL) 351 H 255 H (70-110) mg/dL Hemoglobin A1c 8.7 H (<=6.0) % 03/03/24 03/04/24 Range/Units 20:53 06:37 POC Glucose (mg/dL) 292 H 159 H (70-110) mg/dL Hemoglobin A1c (<=6.0) %
[2024-03-04 12:41] LABS: Glucose,Whole Blood 308 mg/dL (70-110)
--- NOTE | 2024-03-04 13:05 | P.PN ---
Subjective Progress Note Date: 03/04/24 Patient is a 68-year-old white male with past medical history significant for chronic tobacco dependence, pulmonary nodule, COPD, chronic hypoxemic respiratory failure normally maintained on 4 L of home O2, obstructive sleep apnea without home CPAP, obesity, atrial fibrillation anticoagulated on Xarelto, diabetes mellitus, hypertension, hyperlipidemia ,among other things. His primary care provider is a Dr. Hahn. Developed increased shortness of breath and URI like symptoms earlier in the week. Mostly, reporting a runny nose, sore throat, sinus congestion, and a minimally productive cough with occasional green sputum. No fevers, chest pain, or hemoptysis. He was treated with course of steroids and antibiotics on an outpatient basis. States his was sick with similar symptoms a couple weeks ago. He is also reports increased lower extremity swelling. He does take Lasix on outpatient basis, reportedly missed some doses earlier in the week. Patient states that he is scheduled for a outpatient stress test later this month. He has paroxysmal atrial fibrillation, and is chronically anticoagulated on Xarelto. Denies missing any doses of his anticoagulation. Patient was sent in by his PCP for evaluation yesterday evening. He has bilateral lower extremity pitting edema. Denies any chest pain, heart palpitations, lightheadedness, or syncopal events. Chest x-ray did not show any acute cardiopulmonary process. Cardiac silhouette appears stable. No significant vascular congestion or pulmonary edema. No pleural effusions or pneumothoraces. No focal consolidations or evidence of pneumonia. CBC: WBC count 11.1, hemoglobin 16.4, hematocrit 52.4, platelets 314. BMP: Sodium 132, potassium 4.7, chloride 101, serum bicarb 24, BUN 26, creatinine 0.6, glucose 297. LFTs not elevated. Troponin less than 0.012. NT proBNP 114. EKG showing normal sinus rhythm without any obvious acute ischemic changes. Left axis deviation. afebrile. Vital signs stable. The patient is seen today 03/04/2024 in follow-up on the regular medical floor. He is currently sitting up at the bedside. Awake and alert in no acute distress. Feeling a bit better today compared to yesterday. Maintaining good O2 saturations in the 90s on 4 L/min per nasal cannula. Glucose 159. He is continued on DuoNeb inhalations, Symbicort, prednisone taper. Anticoagulated with Xarelto. Remains on IV diuretics. No accurate intake and output measured. Objective - Vital Signs Vital signs: Vital Signs Temp 97.5 F L 03/04/24 07:00 Pulse 82 03/04/24 12:32 Resp 17 03/04/24 07:00 BP 150/75 03/04/24 07:00 Pulse Ox 94 L 03/04/24 08:56 FiO2 Intake & Output 03/03/24 03/04/24 03/04/24 18:59 06:59 18:59 Intake Total 118 118 Balance 118 118 Weight 127.006 kg Intake: Oral 118 118 Other: # Voids 3 - Exam GENERAL EXAM: Alert, pleasant 68-year-old male, sitting up in bed, in no apparent distress. On 4 L/m nasal cannula. HEAD: Normocephalic and atraumatic EYES: Normal reaction of pupils, equal size. NOSE: Clear with pink turbinates. THROAT: No erythema or exudates. NECK: No masses, no JVD. CHEST: No chest wall deformity. LUNGS: Equal air entry with very minimal end expiratory wheezing. No crackles, rhonchi, focal dullness. CVS: S1 and S2 normal with no audible murmur, regular rhythm. No extra heart sounds ABDOMEN: No hepatosplenomegaly, active bowel sounds, no guarding or rigidity. SPINE: No scoliosis or deformity SKIN: No rashes CENTRAL NERVOUS SYSTEM: No focal deficits, tone is normal in all 4 extremities. EXTREMITIES: There is 2+ bilateral lower extremity pitting edema. No clubbing, or cyanosis. Peripheral pulses are intact. - Labs CBC & Chem 7: 03/02/24 17:48 03/02/24 17:48 Labs: Abnormal Lab Results - Last 24 Hours (Table) 03/03/24 03/03/24 03/03/24 Range/Units 11:05 17:14 20:53 POC Glucose (mg/dL) 255 H 292 H (70-110) mg/dL Hemoglobin A1c 8.7 H (<=6.0) % 03/04/24 03/04/24 Range/Units 06:37 12:39 POC Glucose (mg/dL) 159 H 308 H (70-110) mg/dL Hemoglobin A1c (<=6.0) % Assessment and Plan Assessment: Acute on chronic hypoxemic respiratory failure secondary to an acute COPD exacerbation Bilateral lower extremity edema Acute on chronic dyspnea Chronic hypoxemic respiratory failure, normally maintained on 4 L/m nasal cannula 17/03 History of right lower lobe pulmonary nodule, reportedly follows up outpatient with the [facility] medical team. History of chronic tobacco dependence Obstructive sleep apnea, noncompliant with home CPAP History of paroxysmal atrial fibrillation, chronically anticoagulated on his Xarelto History of hyperlipidemia History of hypertension History of diabetes mellitus Obesity, with a BMI of 35 kg/m Plan: The patient was seen and evaluated Medications reviewed Echocardiogram is still pending Continue IV diuretics Continue bronchodilators and prednisone Titrate the FiO2 as tolerated Increase his activity as tolerated We will continue to follow I have personally seen and examined the patient, performed the documentation and the assessment and plan as written. Number of minutes spent on the visit: 10.
--- NOTE | 2024-03-04 15:09 | P.PN ---
Subjective March 04, 2024 Patient is awaiting echocardiogram cardiology evaluated the patient and they believe patient does have congestive heart failure patient is being continued on IV Lasix. Patient leg swelling significantly improved but still has significant swelling. March 03, 2024 68-year-old pulmonary came with complaints of shortness of breath patient does have history of COPD quit smoking about a week and a half ago. Patient also complaining of occasional drainage from production. Patient usually uses 3 to 4 L of oxygen at home does have advanced COPD. Patient significantly improved after breathing treatments and systemic steroids. Patient is not wheezing at this time. Patient does have history of paroxysmal atrial fibrillation chronically anticoagulated patient is presently sinus rhythm. Patient also has significant lower extremity pedal edema does not have any history of congestive heart failure patient BNP and is 132. Troponins are negative. Patient denies any chest pain REVIEW OF SYSTEMS: CONSTITUTIONAL: No fever, no malaise, no fatigue. HEENT: No recent visual problems or hearing problems. Denied any sore throat. CARDIOVASCULAR: No chest pain, orthopnea, PND, no palpitations, no syncope. PULMONARY:-Acute on chronic hypercapnic and hypoxic respiratory failure secondary to COPD exacerbation patient has significant improvement no hemoptysis. GASTROINTESTINAL: No diarrhea, no nausea, no vomiting, no abdominal pain. NEUROLOGICAL: No headaches, no weakness, no numbness. HEMATOLOGICAL: Denies any bleeding or petechiae. GENITOURINARY: Denies any burning micturition, frequency, or urgency. MUSCULOSKELETAL/RHEUMATOLOGICAL: Denies any joint pain, swelling, or any muscle pain. ENDOCRINE: Denies any polyuria or polydipsia. The rest of the 14-point review of systems is negative. PHYSICAL EXAMINATION: GENERAL: The patient is alert and oriented x3, not in any acute distress. Well developed, well nourished. HEENT: Pupils are round and equally reacting to light. EOMI. No scleral icterus. No conjunctival pallor. Normocephalic, atraumatic. No pharyngeal erythema. No thyromegaly. CARDIOVASCULAR: S1 and S2 present. No murmurs, rubs, or gallops. PULMONARY: Chest is clear to auscultation, no wheezing or crackles. ABDOMEN: Soft, nontender, nondistended, normoactive bowel sounds. No palpable organomegaly. MUSCULOSKELETAL: No joint swelling or deformity. EXTREMITIES: No cyanosis, clubbing, or pedal edema. NEUROLOGICAL: Gross neurological examination did not reveal any focal deficits. SKIN: No rashes. Assessment and plan , Patient is significant improvement-acute on chronic hypoxic and hypercapnic respiratory failure systemic steroids and nasal treatments. Patient is presently on oral steroids -bacterial bronchitis doxycycline -Peripheral edema:, Cardiology believes patient does have congestive heart failure awaiting echocardiogram patient is being continued on IV Lasix increased to 40 mg with monitoring of kidney function electrolytes and input and output -Paroxysmal atrial fibrillation presently rate controlled continue with home medications -Type 2 diabetes mellitus uncontrolled elevated blood sugars blood sugars expected to get worse because of the systemic steroids patient will be on high- dose scale -Sleep apnea uses CPAP machine -Generalized deconditioning PT and OT evaluation -Gastroesophageal reflux disease DVT prophylaxis: Objective - Vital Signs Vital signs: Vital Signs Temp 97.5 F L 03/04/24 14:34 Pulse 102 H 03/04/24 14:34 Resp 18 03/04/24 14:34 BP 107/63 03/04/24 14:34 Pulse Ox 92 L 03/04/24 14:34 FiO2 Intake & Output 03/03/24 03/04/24 03/04/24 18:59 06:59 18:59 Intake Total 118 118 Balance 118 118 Weight 127.006 kg Intake: Oral 118 118 Other: # Voids 3 3 - Labs CBC & Chem 7: 03/02/24 17:48 03/02/24 17:48 Labs: Abnormal Lab Results - Last 24 Hours (Table) 03/03/24 03/03/24 03/03/24 Range/Units 11:05 17:14 20:53 POC Glucose (mg/dL) 255 H 292 H (70-110) mg/dL Hemoglobin A1c 8.7 H (<=6.0) % 03/04/24 03/04/24 Range/Units 06:37 12:39 POC Glucose (mg/dL) 159 H 308 H (70-110) mg/dL Hemoglobin A1c (<=6.0) %
[2024-03-04 15:27] LABS: BUN/Creat Ratio 26.11 Ratio (12.00-20.00); Blood Urea Nitrogen 23.5 mg/dL (9.0-27.0); Calcium 9.1 mg/dL (8.7-10.3); Carbon Dioxide 25.9 mmol/L (21.6-31.8); Chloride 95 mmol/L (96-109); Glucose 411 mg/dL (70-110); Potassium 4.6 mmol/L (3.5-5.5); Sodium 134 mmol/L (135-145)
[2024-03-04 17:21] LABS: Glucose,Whole Blood 334 mg/dL (70-110)
[2024-03-04 21:22] LABS: Glucose,Whole Blood 210 mg/dL (70-110)
[2024-03-05 05:53] LABS: Glucose,Whole Blood 182 mg/dL (70-110)
[2024-03-05 08:59] LABS: BUN/Creat Ratio 37.67 Ratio (12.00-20.00); Blood Urea Nitrogen 33.9 mg/dL (9.0-27.0); Calcium 8.8 mg/dL (8.7-10.3); Carbon Dioxide 30.4 mmol/L (21.6-31.8); Chloride 95 mmol/L (96-109); Glucose 245 mg/dL (70-110); Potassium 4.1 mmol/L (3.5-5.5); Sodium 134 mmol/L (135-145)
--- NOTE | 2024-03-05 11:25 | P.PN ---
Subjective History of present illness: Patient is a pleasant 68-year-old male with significant past medical history of COPD, tobacco abuse, lung nodule, atrial fibrillation, diabetes, hypertension, and hyperlipidemia who presented with worsening shortness of breath and edema. He does follow with Dr. Miranda in the office. He does have an outpatient stress test scheduled within the next 2 weeks. He reports that his shortness of breath and lower extremity edema has gotten worse over the past few days. He is confused on some of his medications and believes he is not taking any diuretics. Labs reviewed: WBC 11.1, hemoglobin 16.4, sodium 132, potassium 4.7, creatinine 0.6, troponin negative x 1, BNP 114. Chest x-ray with no acute findings. EKG shows sinus rhythm 87 bpm. He denies any chest pain or pressure. No dizziness or syncope. 03/04 patient seen and examined. Patient states overall he feels somewhat better. He has been receiving IV Lasix with increased urine output. Denies any chest pain or pressure. D-dimer was normal. Echocardiogram pending. 03/05 Patient seen and examined. He is feeling somewhat better. Denies any chest pain or pressure. Still significant lower extremity edema. Echocardiogram is still pending. He has had good urine output and creatinine stable at 0.9. PHYSICAL EXAMINATION: This is a 68-year-old male in no apparent distress at the time of my examination. HEENT: Head is atraumatic, normocephalic. Pupils are equal, round. Sclerae anicteric. Conjunctivae are clear. Mucous membranes of the mouth are moist. Neck is supple. There is no jugular venous distention. No carotid bruit is heard. CHEST EXAMINATION: Lungs are clear to auscultation. No chest wall tenderness is noted on palpation or with deep breathing. HEART EXAMINATION: Heart regular rate and rhythm. S1, S2 heard. No murmurs, gallops or rub. ABDOMEN: Soft, nontender. Bowel sounds are heard. No organomegaly noted. EXTREMITIES: 2+ peripheral pulses with 1+ peripheral edema and no calf tenderness noted. NEUROLOGIC EXAMINATION: Patient is awake, alert and oriented x3. IMPRESSION AND PLAN: COPD Atrial fibrillation Diabetes Hypertension Hyperlipidemia Dyspnea Lower extremity edema PLAN: Continue the IV diuretics at least for 1 more day. Await 2-D echo. Possible discharge in next 24-48 hours. Objective - Vital Signs Vital signs: Vital Signs Temp 97.6 F 03/05/24 07:37 Pulse 92 03/05/24 09:10 Resp 16 03/05/24 07:37 BP 124/73 03/05/24 07:37 Pulse Ox 95 03/05/24 07:37 FiO2 Intake & Output 03/04/24 03/05/24 03/05/24 18:59 06:59 18:59 Intake Total 118 236 Balance 118 236 Intake: Oral 118 236 Other: Voiding Method Toilet Urinal # Voids 3 1 - Labs CBC & Chem 7: 03/02/24 17:48 03/05/24 03:41 Labs: Abnormal Lab Results - Last 24 Hours (Table) 03/04/24 03/04/24 03/04/24 Range/Units 11:49 12:39 17:19 Sodium 134 L (135-145) mmol/L Chloride 95 L (96-109) mmol/L Anion Gap 13.10 H (4.00-12.00) mmol/L BUN (9.0-27.0) mg/dL BUN/Creatinine Ratio 26.11 H (12.00-20.00) Ratio Glucose 411 H (70-110) mg/dL POC Glucose (mg/dL) 308 H 334 H (70-110) mg/dL 03/04/24 03/05/24 03/05/24 Range/Units 21:20 03:41 05:51 Sodium 134 L (135-145) mmol/L Chloride 95 L (96-109) mmol/L Anion Gap (4.00-12.00) mmol/L BUN 33.9 H (9.0-27.0) mg/dL BUN/Creatinine Ratio 37.67 H (12.00-20.00) Ratio Glucose 245 H (70-110) mg/dL POC Glucose (mg/dL) 210 H 182 H (70-110) mg/dL
[2024-03-05 12:02] LABS: Glucose,Whole Blood 258 mg/dL (70-110)
--- NOTE | 2024-03-05 12:22 | P.PN ---
Subjective Progress Note Date: 03/05/24 Patient is a 68-year-old white male with past medical history significant for chronic tobacco dependence, pulmonary nodule, COPD, chronic hypoxemic respiratory failure normally maintained on 4 L of home O2, obstructive sleep apnea without home CPAP, obesity, atrial fibrillation anticoagulated on Xarelto, diabetes mellitus, hypertension, hyperlipidemia ,among other things. His primary care provider is a Dr. Hahn. Developed increased shortness of breath and URI like symptoms earlier in the week. Mostly, reporting a runny nose, sore throat, sinus congestion, and a minimally productive cough with occasional green sputum. No fevers, chest pain, or hemoptysis. He was treated with course of steroids and antibiotics on an outpatient basis. States his was sick with similar symptoms a couple weeks ago. He is also reports increased lower extremity swelling. He does take Lasix on outpatient basis, reportedly missed some doses earlier in the week. Patient states that he is scheduled for a outpatient stress test later this month. He has paroxysmal atrial fibrillation, and is chronically anticoagulated on Xarelto. Denies missing any doses of his anticoagulation. Patient was sent in by his PCP for evaluation yesterday evening. He has bilateral lower extremity pitting edema. Denies any chest pain, heart palpitations, lightheadedness, or syncopal events. Chest x-ray did not show any acute cardiopulmonary process. Cardiac silhouette appears stable. No significant vascular congestion or pulmonary edema. No pleural effusions or pneumothoraces. No focal consolidations or evidence of pneumonia. CBC: WBC count 11.1, hemoglobin 16.4, hematocrit 52.4, platelets 314. BMP: Sodium 132, potassium 4.7, chloride 101, serum bicarb 24, BUN 26, creatinine 0.6, glucose 297. LFTs not elevated. Troponin less than 0.012. NT proBNP 114. EKG showing normal sinus rhythm without any obvious acute ischemic changes. Left axis deviation. afebrile. Vital signs stable. The patient is seen today 03/04/2024 in follow-up on the regular medical floor. He is currently sitting up at the bedside. Awake and alert in no acute distress. Feeling a bit better today compared to yesterday. Maintaining good O2 saturations in the 90s on 4 L/min per nasal cannula. Glucose 159. He is continued on DuoNeb inhalations, Symbicort, prednisone taper. Anticoagulated with Xarelto. Remains on IV diuretics. No accurate intake and output measured. The patient is seen today March 05, 2024 in follow-up on the regular medical floor. He is awake and alert in no acute distress. Sitting up at the bedside. Denies any worsening shortness of breath, cough or congestion. He is maintaining O2 saturation in the mid 90s on 4 L/min per nasal cannula. He is afebrile. Hemodynamically stable. Potassium 4.1. Bicarb 30. BUN 34. Creatinine 0.9. Glucose 245. He remains on IV diuretics. Continued on bronchodilators and prednisone taper. Anticoagulated with Xarelto. Objective - Vital Signs Vital signs: Vital Signs Temp 97.6 F 03/05/24 07:37 Pulse 88 03/05/24 12:15 Resp 16 03/05/24 07:37 BP 124/73 03/05/24 07:37 Pulse Ox 95 03/05/24 07:37 FiO2 Intake & Output 03/04/24 03/05/24 03/05/24 18:59 06:59 18:59 Intake Total 118 236 Balance 118 236 Intake: Oral 118 236 Other: Voiding Method Toilet Urinal # Voids 3 1 - Exam GENERAL EXAM: Alert, oriented 68-year-old male, in no apparent distress. On 4 L/m nasal cannula. HEAD: Normocephalic and atraumatic EYES: Normal reaction of pupils, equal size. NOSE: Clear with pink turbinates. THROAT: No erythema or exudates. NECK: No masses, no JVD. CHEST: No chest wall deformity. LUNGS: Equal air entry with very minimal end expiratory wheezing. Faint crackles at the posterior bases. CVS: S1 and S2 normal with no audible murmur, regular rhythm. No extra heart sounds ABDOMEN: No hepatosplenomegaly, active bowel sounds, no guarding or rigidity. SPINE: No scoliosis or deformity SKIN: No rashes CENTRAL NERVOUS SYSTEM: No focal deficits, tone is normal in all 4 extremities. EXTREMITIES: There is 1+ bilateral lower extremity pitting edema. No clubbing, or cyanosis. Peripheral pulses are intact. - Labs CBC & Chem 7: 03/02/24 17:48 03/05/24 03:41 Labs: Abnormal Lab Results - Last 24 Hours (Table) 03/04/24 03/04/24 03/04/24 Range/Units 11:49 12:39 17:19 Sodium 134 L (135-145) mmol/L Chloride 95 L (96-109) mmol/L Anion Gap 13.10 H (4.00-12.00) mmol/L BUN (9.0-27.0) mg/dL BUN/Creatinine Ratio 26.11 H (12.00-20.00) Ratio Glucose 411 H (70-110) mg/dL POC Glucose (mg/dL) 308 H 334 H (70-110) mg/dL 03/04/24 03/05/24 03/05/24 Range/Units 21:20 03:41 05:51 Sodium 134 L (135-145) mmol/L Chloride 95 L (96-109) mmol/L Anion Gap (4.00-12.00) mmol/L BUN 33.9 H (9.0-27.0) mg/dL BUN/Creatinine Ratio 37.67 H (12.00-20.00) Ratio Glucose 245 H (70-110) mg/dL POC Glucose (mg/dL) 210 H 182 H (70-110) mg/dL 03/05/24 Range/Units 12:00 Sodium (135-145) mmol/L Chloride (96-109) mmol/L Anion Gap (4.00-12.00) mmol/L BUN (9.0-27.0) mg/dL BUN/Creatinine Ratio (12.00-20.00) Ratio Glucose (70-110) mg/dL POC Glucose (mg/dL) 258 H (70-110) mg/dL Assessment and Plan Assessment: Acute on chronic hypoxemic respiratory failure secondary to an acute COPD exacerbation Bilateral lower extremity edema Acute on chronic dyspnea Chronic hypoxemic respiratory failure, normally maintained on 4 L/m nasal cannula 17/03 History of right lower lobe pulmonary nodule, reportedly follows up outpatient with the [facility] medical team. History of chronic tobacco dependence Obstructive sleep apnea, noncompliant with home CPAP History of paroxysmal atrial fibrillation, chronically anticoagulated on his Xarelto History of hyperlipidemia History of hypertension History of diabetes mellitus Obesity, with a BMI of 35 kg/m Plan: The patient was seen and evaluated Medications and labs reviewed Echocardiogram is still pending Continue IV diuretics Continue bronchodilators and prednisone We will continue to follow I have personally seen and examined the patient, performed the documentation and the assessment and plan as written. Number of minutes spent on the visit: 10.
[2024-03-05 17:08] LABS: Glucose,Whole Blood 391 mg/dL (70-110)
[2024-03-05 20:19] LABS: Glucose,Whole Blood 338 mg/dL (70-110)
--- NOTE | 2024-03-05 22:35 | P.PN ---
Subjective Progress Note Date: 03/05/24 March 03, 2024 68-year-old pulmonary came with complaints of shortness of breath patient does have history of COPD quit smoking about a week and a half ago. Patient also complaining of occasional drainage from production. Patient usually uses 3 to 4 L of oxygen at home does have advanced COPD. Patient significantly improved after breathing treatments and systemic steroids. Patient is not wheezing at t his time. Patient does have history of paroxysmal atrial fibrillation chronically anticoagulated patient is presently sinus rhythm. Patient also has significant lower extremity pedal edema does not have any history of congestive heart failure patient BNP and is 132. Troponins are negative. Patient denies any chest pain March 04, 2024 Patient is awaiting echocardiogram cardiology evaluated the patient and they believe patient does have congestive heart failure patient is being continued on IV Lasix. Patient leg swelling significantly improved but still has significant swelling. 03/05/2024 Patient evaluated today sitting up in the chair. Remains on IV lasix 40 mg Q12 hour. Patient continues with lower extremity peripheral edema +2. Sodium 134, BUN 33.9, creatinine 0.9. Blood glucose 200-300s. REVIEW OF SYSTEMS: CONSTITUTIONAL: No fever, no malaise, no fatigue. HEENT: No recent visual problems or hearing problems. Denied any sore throat. CARDIOVASCULAR: No chest pain, orthopnea, PND, no palpitations, no syncope. PULMONARY:-Acute on chronic hypercapnic and hypoxic respiratory failure secondary to COPD exacerbation patient has significant improvement no hemoptysis. GASTROINTESTINAL: No diarrhea, no nausea, no vomiting, no abdominal pain. NEUROLOGICAL: No headaches, no weakness, no numbness. PHYSICAL EXAMINATION: GENERAL: The patient is alert and oriented x3, not in any acute distress. Well developed, well nourished. HEENT: Pupils are round and equally reacting to light. EOMI. No scleral icterus. No conjunctival pallor. Normocephalic, atraumatic. No pharyngeal erythema. No thyromegaly. CARDIOVASCULAR: S1 and S2 present. No murmurs, rubs, or gallops. PULMONARY: Chest is clear to auscultation, no wheezing or crackles. ABDOMEN: Soft, nontender, nondistended, normoactive bowel sounds. No palpable organomegaly. MUSCULOSKELETAL: No joint swelling or deformity. EXTREMITIES: No cyanosis, clubbing, or pedal edema. NEUROLOGICAL: Gross neurological examination did not reveal any focal deficits. SKIN: No rashes. Assessment and plan -acute on chronic hypoxic and hypercapnic respiratory failure felt to be CHF mostly patient continues on IV lasix. -bacterial bronchitis doxycycline -Peripheral edema expected to improve with IV lasix. -Paroxysmal atrial fibrillation presently rate controlled continue with home medications -Type 2 diabetes mellitus uncontrolled elevated blood sugars blood sugars expected to get worse because of the systemic steroids patient will be on high- dose scale add levemir at HS. -Sleep apnea uses CPAP machine -Generalized deconditioning PT and OT evaluation -Gastroesophageal reflux disease DVT prophylaxis: Xarelto GI prophylaxis Pepcid Full Code The impression and plan of care has been dictated by Keyona Ivey, Nurse Practitioner as directed. Dr. Aden MD I have performed a history and physical examination and medical decision making of this patient, discussed the same with the dictator, and agree with the di ctators assessment and plan as written, documented as a scribe. Based on total visit time, I have performed more than 50% of this visit. Objective - Vital Signs Vital signs: Vital Signs Temp 97.9 F 03/05/24 14:00 Pulse 107 H 03/05/24 14:00 Resp 16 03/05/24 14:00 BP 91/53 03/05/24 14:00 Pulse Ox 93 L 03/05/24 14:00 FiO2 Intake & Output 03/04/24 03/05/24 03/05/24 18:59 06:59 18:59 Intake Total 118 458 Balance 118 458 Intake: Oral 118 458 Other: Voiding Method Toilet Toilet Urinal Urinal # Voids 3 1 - Labs CBC & Chem 7: 03/02/24 17:48 03/05/24 03:41 Labs: Abnormal Lab Results - Last 24 Hours (Table) 03/04/24 03/04/24 03/04/24 Range/Units 11:49 17:19 21:20 Sodium 134 L (135-145) mmol/L Chloride 95 L (96-109) mmol/L Anion Gap 13.10 H (4.00-12.00) mmol/L BUN (9.0-27.0) mg/dL BUN/Creatinine Ratio 26.11 H (12.00-20.00) Ratio Glucose 411 H (70-110) mg/dL POC Glucose (mg/dL) 334 H 210 H (70-110) mg/dL 03/05/24 03/05/24 03/05/24 Range/Units 03:41 05:51 12:00 Sodium 134 L (135-145) mmol/L Chloride 95 L (96-109) mmol/L Anion Gap (4.00-12.00) mmol/L BUN 33.9 H (9.0-27.0) mg/dL BUN/Creatinine Ratio 37.67 H (12.00-20.00) Ratio Glucose 245 H (70-110) mg/dL POC Glucose (mg/dL) 182 H 258 H (70-110) mg/dL Assessment and Plan Time with Patient: Less than 30
[2024-03-05] MEDS: INSULIN DETEMIR (LEVEMIR) 100 UNIT/ML SYR SQ SCH (23:23)
[2024-03-06 05:58] LABS: Glucose,Whole Blood 132 mg/dL (70-110)
[2024-03-06 07:29] VITALS: BP 108/68; RESP 16; TEMP 97.6
--- NOTE | 2024-03-06 08:56 | CA ---
Transthoracic Echo Report Name: Lauri Jones Age: 68 Gender: M : 1955 Exam Date: 03/06/2024 07:18 Exam Location: [facility] Ht (in): 76 Wt (lb): 280 Ordering Physician: Johnathan Bearden Attending/Referring Phys: Director [employer] Iesha Estrada RDCS Procedure CPT: Indications: evaluate LV function Cardiac Hx: Technical Quality: Poor Contrast 1: Definity Total Dose (mL): 2 Contrast 2: Total Dose (mL): MEASUREMENTS (Male / Female) Normal Values 2D ECHO LV Diastolic Diameter PLAX 5.1 cm 4.2 - 5.9 / 3.9 - 5.3 cm LV Systolic Diameter PLAX 4.4 cm IVS Diastolic Thickness 1.1 cm 0.6 - 1.0 / 0.6 - 0.9 cm LVPW Diastolic Thickness 1.0 cm 0.6 - 1.0 / 0.6 - 0.9 cm LV Relative Wall Thickness 0.4 RV Internal Dim ED PLAX 2.0 cm LA Systolic Diameter LX 4.0 cm 3.0 - 4.0 / 2.7 - 3.8 cm LA Volume 73.2 cm??? 18 - 58 / 22 - 52 cm??? LA Volume Index 27.7 cm???/m??? 16 - 28 cm???/m??? M-MODE Aortic Root Diameter MM 3.6 cm LA Systolic Diameter MM 3.9 cm LA Ao Ratio MM 1.1 AV Cusp Separation MM 2.5 cm DOPPLER AV Peak Velocity 127.5 cm/s AV Peak Gradient 6.5 mmHg MV Area PHT 3.3 cm??? Mitral E Point Velocity 63.8 cm/s Mitral A Point Velocity 99.4 cm/s Mitral E to A Ratio 0.6 MV Deceleration Time 230.0 ms TR Peak Velocity 284.5 cm/s TR Peak Gradient 32.4 mmHg Right Ventricular Systolic Press 40.4 mmHg FINDINGS Left Ventricle Left ventricular ejection fraction is estimated at 55-60 %. Mildly increased septal wall thickness. No obvious regional wall motion abnormalities. Left ventricular cavity size normal. Right Ventricle Mild right ventricular dilatation. Mild pulmonary hypertension. Right Atrium Mild right atrial dilatation. Left Atrium Moderately increased left atrial volume. Mildly increased left atrial area. Mitral Valve Structurally normal mitral valve. Trace mitral regurgitation. No mitral stenosis. Aortic Valve Aortic valve not well visualized. No aortic stenosis. No aortic regurgitation. Tricuspid Valve Structurally normal tricuspid valve. Mild tricuspid regurgitation. Pulmonic Valve Structurally normal pulmonic valve. No pulmonic regurgitation. No pulmonic stenosis. Pericardium No pericardial or pleural effusion. Aorta Aorta at upper limits of normal. CONCLUSIONS Left ventricular ejection fraction 55-60% Mildly increased left ventricular wall thickness RVSP 40 Moderately dilated left atrium Trace mitral regurgitation Mild tricuspid regurgitation No pericardial effusion Previewed by: Dr. Sage Miranda DO (Electronically Signed) Final Date: 06 March 2024 08:55
--- NOTE | 2024-03-06 09:29 | P.PN ---
Subjective Progress Note Date: 03/06/24 History of present illness: Patient is a pleasant 68-year-old male with significant past medical history of COPD, tobacco abuse, lung nodule, atrial fibrillation, diabetes, hypertension, and hyperlipidemia who presented with worsening shortness of breath and edema. He does follow with Dr. Miranda in the office. He does have an outpatient stress test scheduled within the next 2 weeks. He reports that his shortness of breath and lower extremity edema has gotten worse over the past few days. He is confused on some of his medications and believes he is not taking any diuretics. Labs reviewed: WBC 11.1, hemoglobin 16.4, sodium 132, potassium 4.7, creatinine 0.6, troponin negative x 1, BNP 114. Chest x-ray with no acute findings. EKG shows sinus rhythm 87 bpm. He denies any chest pain or pressure. No dizziness or syncope. 03/04 patient seen and examined. Patient states overall he feels somewhat better. He has been receiving IV Lasix with increased urine output. Denies any chest pain or pressure. D-dimer was normal. Echocardiogram pending. 03/05 Patient seen and examined. He is feeling somewhat better. Denies any chest pain or pressure. Still significant lower extremity edema. Echocardiogram is still pending. He has had good urine output and creatinine stable at 0.9. 03/06 Patient is seen and examined. He has been maintained on IV Lasix 40 mg every 12 hours. Blood pressure 108/68, heart rate 85, pulse ox 96%. Patient still has some shortness of breath and is on home O2, he states on and off. Edema is better today. Echocardiogram reveals EF of 55 to 60%, mildly increased left ventricular wall thickness. RVSP 40. Moderately dilated left atrium. Trace MR, mild TR. No pericardial effusion. PHYSICAL EXAMINATION: This is a 68-year-old male in no apparent distress at the time of my examination. HEENT: Head is atraumatic, normocephalic. Pupils are equal, round. Sclerae anicteric. Conjunctivae are clear. Mucous membranes of the mouth are moist. Neck is supple. There is no jugular venous distention. No carotid bruit is heard. CHEST EXAMINATION: Lungs are clear to auscultation. No chest wall tenderness is noted on palpation or with deep breathing. HEART EXAMINATION: Heart regular rate and rhythm. S1, S2 heard. No murmurs, gallops or rub. ABDOMEN: Soft, nontender. Bowel sounds are heard. No organomegaly noted. EXTREMITIES: 2+ peripheral pulses with 1+ peripheral edema and no calf tenderness noted. NEUROLOGIC EXAMINATION: Patient is awake, alert and oriented x3. IMPRESSION AND PLAN: COPD Paroxysmal atrial fibrillation Diabetes Hypertension Hyperlipidemia Dyspnea Lower extremity edema PLAN: Continue patient on home cardiac medications: Atorvastatin 40 mg daily, lisinopril 10 mg daily, Xarelto 2.5 mg twice daily Transition IV diuretics to oral Lasix 40 mg bid Patient is cleared for discharge from cardiology perspective. Patient will follow up with Dr. Miranda in 1 week. Nurse practitioner note has been reviewed, I agree with documented findings and plan of care. Patient was seen and examined. Objective - Vital Signs Vital signs: Vital Signs Temp 97.6 F 03/06/24 07:27 Pulse 85 03/06/24 07:27 Resp 16 03/06/24 07:27 BP 108/68 03/06/24 07:27 Pulse Ox 96 03/06/24 07:27 FiO2 Intake & Output 03/05/24 03/06/24 03/06/24 18:59 06:59 18:59 Intake Total 458 540 120 Balance 458 540 120 Weight 127.1 kg Intake: Oral 458 540 120 Other: Voiding Method Toilet Toilet Urinal Urinal # Voids 2 2 - Labs CBC & Chem 7: 03/02/24 17:48 03/05/24 03:41 Labs: Abnormal Lab Results - Last 24 Hours (Table) 03/05/24 03/05/24 03/05/24 Range/Units 12:00 17:07 20:18 POC Glucose (mg/dL) 258 H 391 H 338 H (70-110) mg/dL 03/06/24 Range/Units 05:56 POC Glucose (mg/dL) 132 H (70-110) mg/dL
[2024-03-06 09:41] LABS: BUN/Creat Ratio 41.67 Ratio (12.00-20.00); Blood Urea Nitrogen 37.5 mg/dL (9.0-27.0); Carbon Dioxide 31.6 mmol/L (21.6-31.8); Chloride 95 mmol/L (96-109); Glucose 149 mg/dL (70-110); Potassium 4.6 mmol/L (3.5-5.5); Sodium 135 mmol/L (135-145)
--- NOTE | 2024-03-06 10:43 | P.PN ---
Subjective Progress Note Date: 03/06/24 Patient is a 68-year-old white male with past medical history significant for chronic tobacco dependence, pulmonary nodule, COPD, chronic hypoxemic respiratory failure normally maintained on 4 L of home O2, obstructive sleep apnea without home CPAP, obesity, atrial fibrillation anticoagulated on Xarelto, diabetes mellitus, hypertension, hyperlipidemia ,among other things. His primary care provider is a Dr. Hahn. Developed increased shortness of breath and URI like symptoms earlier in the week. Mostly, reporting a runny nose, sore throat, sinus congestion, and a minimally productive cough with occasional green sputum. No fevers, chest pain, or hemoptysis. He was treated with course of steroids and antibiotics on an outpatient basis. States his was sick with similar symptoms a couple weeks ago. He is also reports increased lower extremity swelling. He does take Lasix on outpatient basis, reportedly missed some doses earlier in the week. Patient states that he is scheduled for a outpatient stress test later this month. He has paroxysmal atrial fibrillation, and is chronically anticoagulated on Xarelto. Denies missing any doses of his anticoagulation. Patient was sent in by his PCP for evaluation yesterday evening. He has bilateral lower extremity pitting edema. Denies any chest pain, heart palpitations, lightheadedness, or syncopal events. Chest x-ray did not show any acute cardiopulmonary process. Cardiac silhouette appears stable. No significant vascular congestion or pulmonary edema. No pleural effusions or pneumothoraces. No focal consolidations or evidence of pneumonia. CBC: WBC count 11.1, hemoglobin 16.4, hematocrit 52.4, platelets 314. BMP: Sodium 132, potassium 4.7, chloride 101, serum bicarb 24, BUN 26, creatinine 0.6, glucose 297. LFTs not elevated. Troponin less than 0.012. NT proBNP 114. EKG showing normal sinus rhythm without any obvious acute ischemic changes. Left axis deviation. afebrile. Vital signs stable. The patient is seen today 03/04/2024 in follow-up on the regular medical floor. He is currently sitting up at the bedside. Awake and alert in no acute distress. Feeling a bit better today compared to yesterday. Maintaining good O2 saturations in the 90s on 4 L/min per nasal cannula. Glucose 159. He is continued on DuoNeb inhalations, Symbicort, prednisone taper. Anticoagulated with Xarelto. Remains on IV diuretics. No accurate intake and output measured. The patient is seen today March 05, 2024 in follow-up on the regular medical floor. He is awake and alert in no acute distress. Sitting up at the bedside. Denies any worsening shortness of breath, cough or congestion. He is maintaining O2 saturation in the mid 90s on 4 L/min per nasal cannula. He is afebrile. Hemodynamically stable. Potassium 4.1. Bicarb 30. BUN 34. Creatinine 0.9. Glucose 245. He remains on IV diuretics. Continued on bronchodilators and prednisone taper. Anticoagulated with Xarelto. The patient is seen today March 06, 2024 in follow-up on the regular medical floor. He is currently sitting up at the bedside having breakfast. Awake and alert in no acute distress. Maintaining O2 saturations in the 90s on 4 L/min per nasal cannula. He has been afebrile. Hemodynamically stable. Echocardiogram revealed preserved left ventricular systolic function with ejection fraction 55 to 60%. No significant valvular heart disease. Sodium 135. Potassium 4.6. Bicarb 32. BUN 37. Creatinine 0.9. Glucose 149. He is continued on DuoNeb inhalations, Symbicort, prednisone taper. Transitioned to oral diuretics. Anticoagulated with Xarelto. Objective - Vital Signs Vital signs: Vital Signs Temp 97.6 F 03/06/24 07:27 Pulse 85 03/06/24 07:27 Resp 16 03/06/24 07:27 BP 108/68 03/06/24 07:27 Pulse Ox 96 03/06/24 07:27 FiO2 Intake & Output 03/05/24 03/06/24 03/06/24 18:59 06:59 18:59 Intake Total 458 540 120 Balance 458 540 120 Weight 127.1 kg Intake: Oral 458 540 120 Other: Voiding Method Toilet Toilet Urinal Urinal # Voids 2 2 - Exam GENERAL EXAM: Alert, pleasant 68-year-old male, sitting up having breakfast, in no apparent distress. On 4 L/m nasal cannula. HEAD: Normocephalic and atraumatic EYES: Normal reaction of pupils, equal size. NOSE: Clear with pink turbinates. THROAT: No erythema or exudates. NECK: No masses, no JVD. CHEST: No chest wall deformity. LUNGS: Equal air entry with very minimal end expiratory wheezing. Faint crackles at the posterior bases. CVS: S1 and S2 normal with no audible murmur, regular rhythm. No extra heart s ounds ABDOMEN: No hepatosplenomegaly, active bowel sounds, no guarding or rigidity. SPINE: No scoliosis or deformity SKIN: No rashes CENTRAL NERVOUS SYSTEM: No focal deficits, tone is normal in all 4 extremities. EXTREMITIES: There is 1+ bilateral lower extremity pitting edema. No clubbing, or cyanosis. Peripheral pulses are intact. - Labs CBC & Chem 7: 03/02/24 17:48 03/06/24 04:05 Labs: Abnormal Lab Results - Last 24 Hours (Table) 03/05/24 03/05/24 03/05/24 Range/Units 12:00 17:07 20:18 Chloride (96-109) mmol/L BUN (9.0-27.0) mg/dL BUN/Creatinine Ratio (12.00-20.00) Ratio Glucose (70-110) mg/dL POC Glucose (mg/dL) 258 H 391 H 338 H (70-110) mg/dL 03/06/24 03/06/24 Range/Units 04:05 05:56 Chloride 95 L (96-109) mmol/L BUN 37.5 H (9.0-27.0) mg/dL BUN/Creatinine Ratio 41.67 H (12.00-20.00) Ratio Glucose 149 H (70-110) mg/dL POC Glucose (mg/dL) 132 H (70-110) mg/dL Assessment and Plan Assessment: Acute on chronic hypoxemic respiratory failure secondary to an acute COPD exacerbation Bilateral lower extremity edema Acute on chronic dyspnea Chronic hypoxemic respiratory failure, normally maintained on 4 L/m nasal cannula 17/03 History of right lower lobe pulmonary nodule, reportedly follows up outpatient with the [facility] medical team. History of chronic tobacco dependence Obstructive sleep apnea, noncompliant with home CPAP History of paroxysmal atrial fibrillation, chronically anticoagulated on his Xarelto History of hyperlipidemia History of hypertension History of diabetes mellitus Obesity, with a BMI of 35 kg/m Plan: The patient was seen and evaluated Medications and labs reviewed Echocardiogram reviewed Transition to oral diuretics Continue bronchodilators and prednisone Cleared for discharge from the pulmonary standpoint Continue his home oxygen, pulmonary medications Complete a prednisone taper Follow-up in the office in 1 week I have personally seen and examined the patient, performed the documentation and the assessment and plan as written. Number of minutes spent on the visit: 10.
[2024-03-06 11:35] LABS: Glucose,Whole Blood 175 mg/dL (70-110)
[2024-03-06 11:50] VITALS: PULSE 84
[2024-03-06] MEDS ORDERED: FUROSEMIDE 40 MG TAB PO SCH (16:00)
--- NOTE | 2024-03-08 15:41 | P.DS ---
Providers Date of admission: 03/04/24 14:00 Attending physician: Clark Fernandez Consults: 03/02/24 21:54 Consult Physician Routine Consulting Provider: Lilo Roy Consult Reason/Comments: dyspnea Do you want consulting provider notified?: Yes 03/03/24 02:32 Consult Physician Routine Consulting Provider: Sage Miranda Consult Reason/Comments: Known; increase lower extremity edema Do you want consulting provider notified?: Yes, Notify in am Primary care physician: Yoni Hahn DO Hospital Course: Final Diagnosis -acute on chronic hypoxic and hypercapnic respiratory failure felt to be CHF -bacterial bronchitis doxycycline -Peripheral edema expected to improve with IV lasix. -Paroxysmal atrial fibrillation presently rate controlled continue with home medications -Type 2 diabetes mellitus uncontrolled -Sleep apnea uses CPAP machine -Generalized deconditioning PT and OT evaluation -Gastroesophageal reflux disease -History of smoking recently quit. -COPD oxygen dependent with mild acute exacerbation Discharge Disposition Stable for discharge home. Patient will continue on Lasix 40 mg twice a day. Additionally patient has been started on Symbicort and will complete an oral prednisone taper. Plan to follow-up with their PCP in the office in 1 to 2 days as well as pulmonary Dr. Robles in [address] Miranda in 1 week. Recommending to repeat a basic metabolic panel in 2 to 3 days. Hospital Course This is a 68-year-old male with history of sleep apnea, gastroesophageal reflux disease, diabetes mellitus, paroxysmal atrial fibrillation, new complaints of lower extremity edema. Patient was having occasional drainage from them as well. Patient does have a history of COPD also states that he quit smoking a few weeks ago. Patient does wear 3 to 4 L at home secondary to advanced COPD. Was admitted to the hospital a consult placed to pulmonary and cardiology services. He was given breathing treatments and systemic steroids. He was started on IV Lasix and had a echocardiogram done which revealed ejection fraction of 55 to 60% with trace mitral regurgitation, mild tricuspid regurgitation and no pericardial effusion. Patient sodium level is 135, has potassium level 4.6, BUN of 37.5, creatinine of 0.9. He has diuresed well. Although he still is having mild lower extremity edema he is recommended to use compression stockings and elevate his legs while sitting. He is not having any shortness of breath no chest pain. He will discharge home on oral Lasix. Please see medication reconciliation for a list of current medications. Thank you for allowing us to participate in the care of this patient. The impression and plan of care has been dictated by Keyona Ivey, Nurse Practitioner as directed. Dr. Aden MD I have performed a history and physical examination and medical decision making of this patient, discussed the same with the dictator, and agree with the dictators assessment and plan as written, documented as a scribe. Based on total visit time, I have performed more than 50% of this visit. Patient Condition at Discharge: Fair Plan - Discharge Summary New Discharge Prescriptions: New Budesonide-Formot 160-4.5 Mcg [Symbicort 160-4.5 Mcg Inhaler] 2 puff INHALATION RT-BID #1 each Furosemide [Lasix] 40 mg PO BID@0900,1600 #60 tab Famotidine [Pepcid] 20 mg PO DAILY #30 tab predniSONE 0 mg PO DIRECTED 12 Days #30 tab Continue Potassium Chloride [K-Tab ER] 10 meq PO DAILY Canagliflozin [Invokana] 300 mg PO DAILY metFORMIN HCL [Glucophage] 1,000 mg PO BID Atorvastatin [Lipitor] 40 mg PO DAILY Rivaroxaban [Xarelto] 2.5 mg PO BID Enalapril [Vasotec] 5 mg PO DAILY Tiotropium 18 Mcg/Puff [Spiriva] 1 puff INHALATION RT-DAILY Doxycycline [Vibramycin] 100 mg PO BID Dulaglutide [Trulicity] 3 mg SQ WE Albuterol Sulfate [Albuterol Sulfate Hfa] 1 - 2 puff PO RT-Q4H PRN PRN Reason: Shortness Of Breath Bisoprolol Fumarate [Zebeta] 10 mg PO DAILY Pioglitazone [Actos] 30 mg PO DAILY Discharge Medication List Canagliflozin [Invokana] 300 mg PO DAILY 06/12/17 [History] Potassium Chloride [K-Tab ER] 10 meq PO DAILY 06/12/17 [History] metFORMIN HCL [Glucophage] 1,000 mg PO BID 06/12/17 [History] Atorvastatin [Lipitor] 40 mg PO DAILY 09/11/22 [History] Rivaroxaban [Xarelto] 2.5 mg PO BID 09/11/22 [History] Tiotropium 18 Mcg/Puff [Spiriva] 1 puff INHALATION RT-DAILY 09/11/22 [History] Albuterol Sulfate [Albuterol Sulfate Hfa] 1 - 2 puff PO RT-Q4H PRN 03/03/24 [ History] Bisoprolol Fumarate [Zebeta] 10 mg PO DAILY 03/03/24 [History] Doxycycline [Vibramycin] 100 mg PO BID 03/03/24 [History] Dulaglutide [Trulicity] 3 mg SQ WE 03/03/24 [History] Enalapril [Vasotec] 5 mg PO DAILY 03/03/24 [History] Pioglitazone [Actos] 30 mg PO DAILY 03/03/24 [History] Budesonide-Formot 160-4.5 Mcg [Symbicort 160-4.5 Mcg Inhaler] 2 puff INHALATION RT-BID #1 each 03/06/24 [Rx] Famotidine [Pepcid] 20 mg PO DAILY #30 tab 03/06/24 [Rx] Furosemide [Lasix] 40 mg PO BID@0900,1600 #60 tab 03/06/24 [Rx] predniSONE 0 mg PO DIRECTED 12 Days #30 tab 03/06/24 [Rx] Follow up Appointment(s)/Referral(s): Lilo Roy MD [STAFF PHYSICIAN] - 1 Week Yoni Hahn DO [Primary Care Provider] - 1-2 days Sage Miranda DO [STAFF PHYSICIAN] - 1 Week Ambulatory/Diagnostic Orders: Basic Metabolic Panel [LAB.AMB] Time Frame: 3 Days, Location: None Selected Activity/Diet/Wound Care/Special Instructions: Need to elevate legs while sitting and recommend compression dressings. Discharge Disposition: HOME SELF-CARE
--- NOTE | 2024-03-09 13:32 | CDI ---
Documentation Clarification Form Date: 03/09/2024 01:19:18 PM From: Liat Reyes Admit Date: 03/04/2024 02:00:00 PM Patient Name: Lauri Jones Visit Number: [id number] Discharge Date: 03/06/2024 01:28:00 PM ATTENTION: The Clinical Documentation Specialists (CDI) and [facility] Coding Staff appreciate your assistance in clarifying documentation. Please respond to the clarification below the line at the bottom and electronically sign. The CDI & [facility] Coding staff will review the response and follow-up if needed. Please note: Queries are made part of the Legal Health Record. If you have any questions, please contact the author of this message via ITS. Doctor/Provider: Aden Acute on chronic hypoxic and hypercapnic respiratory failure felt to be CHF, documented in DCS. Additional information regarding the [type, acuity] of CHF is requested. History/Risk Factors: Hypertension, DM, TATIANA COPD exacerbation with bronchitis, O2 dependent Clinical Indicators: SOB VS/Pulse OX: 90% RA BNP: 114 Echocardiogram Results: Left ventricular EF 55-60% Chest X Ray: No acute cardiopulmonary disease/process Treatment: Lasix 20 mg IV In your professional opinion, can you please clarify the [acuity and type] of CHF if known? [ ] Acute Systolic Heart Failure (reduced EF) [ ] Chronic Systolic Heart Failure (reduced EF) [ ] Acute on Chronic Systolic Heart Failure (reduced EF) [ ] Acute Diastolic Heart Failure (preserved EF) [ ] Chronic Diastolic Heart Failure (preserved EF) [ x ] Acute on Chronic Diastolic Heart Failure (preserved EF) [ ] Acute Systolic & Diastolic Heart Failure [ ] Chronic Systolic & Diastolic Heart Failure [ ] Acute on Chronic Heart Failure Systolic & Diastolic Heart Failure [ ] Other, please specify [ ] Unable to determine MTDD
== END 2024-03-06 13:28 | disposition home or self-care (01) | DRG 291 ==
LOC: EC 17:31 → 6NMEDSUR 21:55 → OBSVTOIN 03-04 14:00
PROVIDERS: ADMIT Hospitalist; ATTEND Hospitalist
DX: I11.0 Hypertensive heart disease with heart failure (principal); I50.33 Acute on chronic diastolic (congestive) heart failure; J96.21 Acute and chronic respiratory failure with hypoxia; J96.22 Acute and chronic respiratory failure with hypercapnia; J44.1 Chronic obstructive pulmonary disease with (acute) exacerbation; G47.33 Obstructive sleep apnea (adult) (pediatric); I48.0 Paroxysmal atrial fibrillation; Z68.35 Body mass index [BMI] 35.0-35.9, adult; E66.9 Obesity, unspecified; E11.9 Type 2 diabetes mellitus without complications; R91.1 Solitary pulmonary nodule; J40 Bronchitis, not specified as acute or chronic; E78.5 Hyperlipidemia, unspecified; M19.90 Unspecified osteoarthritis, unspecified site; F17.200 Nicotine dependence, unspecified, uncomplicated; Z79.01 Long term (current) use of anticoagulants; Z79.4 Long term (current) use of insulin; Z79.84 Long term (current) use of oral hypoglycemic drugs; Z79.899 Other long term (current) drug therapy; Z79.85 Long-term (current) use of injectable non-insulin antidiabetic drugs; Z91.199 Patient's noncompliance with other medical treatment and regimen due to unspecified reason; Z96.41 Presence of insulin pump (external) (internal); Z96.642 Presence of left artificial hip joint; Z99.81 Dependence on supplemental oxygen; Z20.822 Contact with and (suspected) exposure to COVID-19
CPT/HCPCS: 36415; 71046; 80048; 80053; 83036; 83880; 84484; 85025; 85379; 85610; 85730; 87636; 93005; 93306; 94640; 94760; 96361; 96374; 96375; 96376; 99285

== ENCOUNTER → 2024-11-30 | Outpatient (CLI) | payer MEDICARE ==
--- NOTE | 2024-12-06 22:17 | P.PCN ---
Date of Procedure: 11/30/24 Operative Findings: Home sleep study History This is a 69-year-old male patient, known history of COPD and chronic hypoxic respiratory failure maintained on oxygen at 4 L/min nasal cannula in addition to history of obesity, chronic A-fib, diabetes mellitus, hypertension hyperlipidemia. The patient was diagnosed having TATIANA many years back. Official documentation and diagnosis of sleep apnea was not available. Note that the time of his diagnosis, the patient was given CPAP therapy. He was unable to tolerate the treatment as such he quit therapy. The patient has been off treatment for many years and he presented to me for evaluation. A home sleep study was done accordingly to reevaluate the presence and severity of sleep apnea. Physical findings Body mass index is 35.6 with a weight of 285 pounds Technical description The [email or web address] system was used to complete his home sleep study. This is a type III on sleep study evaluation. The total recording duration was 7 hours and 56 minutes. The recording started at 11:18 PM and ended at 7:14 AM. There was a total of 5 hours and 34 minutes of flow monitoring and 5 hours and 52 minutes of oxygen saturation monitoring. Noted, the study was considered to be limited due to the airflow and oxygen saturation artifact noted throughout much of the study. Difficulties were also noted in the pulse ox recording and the accuracy of those numbers are quite questionable. Results The rest analysis showed a total of 12 obstructive apneas and 27 obstructive hypopneas. The resulting AHI was 7 Oxygenation analysis The baseline pulse ox while awake was 93%. Average pulse ox during sleep was 85% with a minimum pulse ox of 74% and the patient spent approximately 4 hours and 33 minutes of the sleep time below pulse ox of 89% Cardiac summary Average heart rate was 82 with a minimum heart rate of 40 and a maximum heart rate 199 Plan Mild obstructive sleep apnea with an AHI of 7 Severe nocturnal oxygen desaturation. Noted the patient has chronic hypoxic respiratory failure related to COPD. He did encounter an oxygen saturation with a pulse oximetry dropping below 89% for a total of 4 hours and 33 minutes. COPD with chronic hypoxic respiratory failure Paroxysmal atrial fibrillation Hypertension Hyperlipidemia Diabetes mellitus type 2 Osteoarthritis Acid reflux Plan Will discuss finding with the patient. There was a artifact noted in the airflow and oxygen saturation tracing throughout the study. Nevertheless, disease severity is mild and the patient has significant nocturnal oxygen saturation related to his chronic COPD as the patient also has baseline hypoxemia while awake at rest. For now, the patient will be maintained on O2 therapy overnight. Encourage weight loss. Optimize COPD. He has failed CPAP therapy in the past. Not a good candidate for inspire/hypoglossal nerve stimulation. Implement conservative measures of sleep apnea therapy. Optimize COPD. Will follow. Will discuss those findings with the patient in the office.
== END ==
LOC: 3 N SLEEP 16:29
PROVIDERS: ATTEND Internal Medicine Critical Care Medicine
DX: G47.33 Obstructive sleep apnea (adult) (pediatric) (principal); J44.9 Chronic obstructive pulmonary disease, unspecified; J96.11 Chronic respiratory failure with hypoxia; I10 Essential (primary) hypertension; I48.0 Paroxysmal atrial fibrillation; E11.9 Type 2 diabetes mellitus without complications; E78.5 Hyperlipidemia, unspecified; K21.9 Gastro-esophageal reflux disease without esophagitis; M19.90 Unspecified osteoarthritis, unspecified site; F17.210 Nicotine dependence, cigarettes, uncomplicated